=== PATIENT | female | born 1940 | race Caucasian/White ===

== ENCOUNTER 2018-06-16 10:17 | Day surgery (SDC) | payer MEDICARE, OTHER, SELFPAY ==
--- NOTE | 2018-06-16 | PATH_ITS ---
[facility] Accession Number: [id number] . 01 Material submitted: . PART A: GASTRIC BIOPSY PART B: BIOPSY AT 65CM PART C: BIOPSY AT 45CM PART D: BIOPSY AT 25CM X3 . 02 Diagnosis: A. Gastric Biopsy: Portions of gastric body-type and antral mucosa with very mild chronic gastritis. Negative for H. pylori organisms by immunohistochemistry studies. Negative for intestinal metaplasia, dysplasia, and malignancy. . B. Biopsy at 65 cm: Portions of tubular adenoma x3; negative for high-grade dysplasia. . C. Biopsy at 45 cm: Superficial portion of colorectal mucosa x1 with no significant histomorphologic abnormality. Additional levels through the block are noncontributory. . D. Biopsy at 25 cm: Portions of hyperplastic polyp x 5. Superficial portions of colorectal mucosa x6 with no significant histomorphologic abnormality. Additional levels through the block are noncontributory. [facility]/06/18/2018 . 02 Electronically signed: . Anastasia Dupont MD, Pathologist NPI- [id number] . 01 Gross description: . Part A: GASTRIC BIOPSY: Received in formalin are 2 fragment(s) of arreguin, soft tissue measuring 0.4 x 0.3 x 0.2 cm to 0.3 x 0.3 x 0.2 cm submitted entirely in 1 cassette(s) Part B: BIOPSY AT 65CM: Received in formalin are 3 fragment(s) of arreguin, soft tissue measuring 0.4 x 0.3 x 0.2 cm to 0.3 x 0.2 x 0.1 cm submitted entirely in 1 cassette(s) Part C: BIOPSY AT 45CM: Received in formalin is 1 fragment(s) of arreguin, soft tissue measuring 0.5 x 0.4 x 0.3 cm submitted entirely in 1 cassette(s) Part D: BIOPSY AT 25CM X3: Received in formalin are multiple fragment(s) of arreguin, soft tissue measuring 1.4 x 0.5 x 0.3 cm in aggregate submitted entirely in 1 cassette(s) /CKI /CKI . 02 Microscopic: . An immunohistochemical stain was performed to evaluate for Helicobacter organisms on block A and is negative. The control stain showed appropriate reactivity. . * This test was developed and its performance characteristics determined by [facility]. It has not been cleared or approved by the U.S. Food and Drug Administration. The FDA has determined that such clearance or approval is not necessary. This test is used for clinical purposes. It should not be regarded as investigational or for research. . 02 Pathologist provided ICD-10: K63.5 . 02 CPT . 519790, 406114, 773152, 180097, [id number] Performed at: 01 [facility] [address] [place] [address], [place], [place] [id number] MD Luiz Barron MD Phone: [phone] Performed at: 02 [facility] [address] [place], [place] [id number] MD Danae Calderon MD Phone: [phone]
[2018-06-16 11:18] VITALS: BP 117/67; PULSE 79; RESP 15; TEMP 36.2; O2SAT 97; BMI 25.4
[2018-06-16] MEDS: SODIUM CHLORIDE 0.9% 1,000 ML 200 ML IV (11:36)
--- NOTE | 2018-06-16 12:44 | PM.PREOP ---
Pre-operative Note Interval Note History & Physical reviewed/Exam performed by Physician: Yes Changes to H&P: No ASA Class (for procedural sedation): II
[2018-06-16] MEDS: LIDOCAINE 4% SOLN 50 ML 20 ML TOP (12:53)
[2018-06-16] MEDS: TETRACAINE/BENZOCAINE/BUTAMBEN (CETACAINE) BOTTLE 1 SPRAY TOP (12:54)
[2018-06-16] MEDS: fentaNYL 250 MCG/5 ML INJ IV (12:55)
[2018-06-16] MEDS: MIDAZOLAM 5 MG/5 ML VIAL IV (12:55)
--- NOTE | 2018-06-16 13:40 | PM.OP.ENDO ---
Operative Date/Time/Diagnoses Date of procedure: 06/16/18 Time of procedure: 13:40 Pre-op diagnosis: Anemia Post-op diagnosis: same (Gastric ulcers.(likely source of anemia). Multiple small colonic polyps (not likely souce of anemia)) Procedure & Clinicians Study performed: EGD with cold biopsy colonoscopy with cold biopsy Same procedure as scheduled: Yes Indications: Determine cause of anemia Surgeon: Garry Cardozo Procedure Notes SCOAP/Timeout: Performed Procedure in detail: The patient had topical anesthetic applied to oropharynx. She was placed in left lateral decubitus position and underwent IV sedation directed by the surgeon consisting of fentanyl and Versed. A bite block was inserted and the scope was advanced through it into the esophagus. The esophagus was unremarkable. GE junction was noted at 40 cm from the incisors. The stomach insufflated well. There were superficial ulcer lesions seen in the body, antrum. the incisura was normal. The pyloric channel was patent. The duodenum was remarkable for small AVMs in the 3rd part of the duodenum. These did not appear to have bled. The scope was brought back into the stomach and retroflexed. The proximal stomach was remarkable for some superficial well circumscribed there were 2 small such [address]. The scope was straightened and biopsies were taken of the ulcers within the body and antrum.. The scope was straightened and brought out through the esophagus again. No lesions were seen. The scope was removed and the patient tolerated the procedure well. The patient was repositioned and given additional sedation. Digital exam was unremarkable. Scope was inserted advanced through the rectum into the sigmoid descending transverse and ascending colon. There was quite a bit of tortuosity in the colon. I reached the cecum identified by the ileocecal valve and the appendiceal opening. The scope was gradually brought out. At 65 cm there was a small flat lesion which was biopsied and appeared to be completely removed. At 45 cm there were 2 additional polyps treated in the same fashion. At at 25 cm there were 2 polyps 1 adjacent to the other which were biopsied and completely removed. The scope was brought into the rectum and retroflexed. No lesions were seen. The scope was removed and patient tolerated the procedure well. Scope withdrawal time: 17 min Sedation minutes: 40 Findings: diverticulosis (Sigmoid), gastric ulcer (Multiple superficial) and polyp (Multiple colonic) Recommendations: Colonscopy in 5 years and Start medication(s) (Proton pump inhibitor) Plan for aftercare: Follow-up in the office Follow up: months (Two) Disposition: PACU
[2018-06-16 13:49] VITALS: BP 102/49; PULSE 95; RESP 15; TEMP 36.6; O2SAT 98
[2018-06-16 14:00] VITALS: BP 92/57; PULSE 83; RESP 16; O2SAT 97
[2018-06-16 14:20] VITALS: BP 111/63; PULSE 83; RESP 16; TEMP 36.7; O2SAT 98
== END 2018-06-16 15:56 | disposition home or self-care (01) ==
PROVIDERS: PCP Internal Medicine; Visit Provider Specialist
PROC: 0DJ08ZZ Inspection of Upper Intestinal Tract, Via Natural or Artificial Opening Endoscopic (ICD-10-PCS; CPT 43235; principal; 2018-06-16 11:45)
PROC: 0DJD8ZZ Inspection of Lower Intestinal Tract, Via Natural or Artificial Opening Endoscopic (ICD-10-PCS; CPT 45378; 2018-06-16 11:45)
DX: D64.9 Anemia, unspecified (principal); K25.9 Gastric ulcer, unspecified as acute or chronic, without hemorrhage or perforation; Z87.891 Personal history of nicotine dependence; K57.30 Diverticulosis of large intestine without perforation or abscess without bleeding; K63.5 Polyp of colon
CPT/HCPCS: 45380; 43239; 88305; 88342; 99152; 99153; J2250; J3010

== ENCOUNTER 2019-02-16 06:29 | Day surgery (SDC) | payer MEDICARE, OTHER, SELFPAY ==
[2019-02-16 07:27] VITALS: BP 114/71; PULSE 85; RESP 16; TEMP 36.2; O2SAT 96; BMI 26.1
[2019-02-16] MEDS: SODIUM CHLORIDE 0.9% 1,000 ML 200 ML IV (07:41)
--- NOTE | 2019-02-16 08:36 | PM.HP.1 ---
History of Present Illness History of Present Illness Date Patient Seen: 02/16/19 Time Patient Seen: 08:00 Chief complaint: [id number] Narrative: The patient is a woman here for a repeat EGD to confirm healing of gastric ulcers. She has been taking pantoprazole 40 mg daily. She has a history of anemia. Colonoscopy did not reveal anything source of slow blood loss. Patient History Surgical History S/P femoral-femoral bypass surgery (Resolved) Status post bilateral hip replacements (Resolved) Social History household members: none Smoking Status: Former smoker Tobacco: How many years used: 30 Family & Social History Social History: household members none Tobacco & Substance use: Smoking Status Former smoker Meds Home Medications and Allergies Home Medications Medication Instructions Recorded Confirmed Type clopidogrel 75 mg tablet 75 mg PO DAILY 05/27/18 02/16/19 History triamcinolone acetonide 0.025 % 1 applictn TOP BID 05/27/18 02/16/19 History topical cream pantoprazole 40 mg PO DAILY #30 tab 06/16/18 02/16/19 Rx Allergies Allergy/AdvReac Type Severity Reaction Status Date / Time No Known Drug Allergies Allergy Verified 10/28/18 14:05 Exam Vital Signs (past 8 hours): - 02/16/19 07:27 Temperature 97.1 F L Pulse Rate 85 Respiratory Rate 16 Blood Pressure 114/71 Pulse Oximetry 96 Oxygen Delivery Method Room Air Narrative Exam Narrative: Pleasant cooperative patient no apparent distress. Lungs are clear to auscultation. No rales or rhonchi. Heart regular rate and rhythm no murmur gallop. Abdomen is soft nontender without mass. No obvious hernias. Patient is alert and oriented x3. Assessment & Plan Assessment & Plan narrative: Patient with a history gastric ulcers here for an EGD to confirm healing. She was asymptomatic at the time of diagnosis. I have discussed the procedure with her including risks of bleeding and perforation. She appears to undedrstand and wishes to proceed.
--- NOTE | 2019-02-16 08:40 | PM.PREOP ---
Pre-operative Note Interval Note History & Physical reviewed/Exam performed by Physician: Yes Changes to H&P: No ASA Class (for procedural sedation): II
[2019-02-16] MEDS: MIDAZOLAM 5 MG/5 ML VIAL IV (08:47)
[2019-02-16] MEDS: fentaNYL 250 MCG/5 ML INJ IV (08:48)
--- NOTE | 2019-02-16 08:49 | PM.OP.ENDO ---
Operative Date/Time/Diagnoses Date of procedure: 02/16/19 Time of procedure: 08:50 Pre-op diagnosis: History of gastric ulcers and anemia Post-op diagnosis: same (Ulcers appear to have healed) Procedure & Clinicians Study performed: EGD Same procedure as scheduled: Yes Indications: Confirm ulcer healing. Patient was asymptomatic at the time of diagnosis. Surgeon: Garry Cardozo Procedure Notes SCOAP/Timeout: Perform Procedure in detail: The patient had topical anesthetic applied to oropharynx. She was placed in left lateral decubitus position and underwent IV sedation directed by the surgeon consisting of fentanyl and Versed. A bite block was inserted and the scope was advanced through it into the esophagus. The esophagus was unremarkable. GE junction was noted at 36 cm from the incisors. The stomach insufflated well. There were no lesions seen in the body, antrum or at the incisura. The pyloric channel was patent. The duodenum was unremarkable to the 4th part. The scope was brought back into the stomach and retroflexed. The proximal stomach normal in appearance. The scope was straightened and brought out through the esophagus again. No lesions were seen. The scope was removed and the patient tolerated the procedure well. Scope withdrawal time: Not applicable Sedation minutes: 8 Findings: other findings (Normal exam) Specimen(s): none sent Complications: none Post-procedure Plan for aftercare: Can probably sees proton pump inhibitor if given for ulcer disease. If given for other problems like reflux may need to continue. Follow up: as needed Disposition: PACU
[2019-02-16] MEDS: LIDOCAINE 4% SOLN 50 ML 20 ML TOP (08:50)
[2019-02-16 08:53] VITALS: BP 112/65; PULSE 89; RESP 12; TEMP 36.3; O2SAT 96
[2019-02-16 08:58] VITALS: BP 104/58; PULSE 91; RESP 17; O2SAT 95
[2019-02-16 09:03] VITALS: BP 114/56; PULSE 79; RESP 15; O2SAT 92
[2019-02-16 09:08] VITALS: BP 114/61; PULSE 83; RESP 14; TEMP 36.4; O2SAT 97
[2019-02-16 09:15] VITALS: BP 104/87; PULSE 79; RESP 16; TEMP 36.5; O2SAT 96
== END 2019-02-16 09:27 | disposition home or self-care (01) ==
PROVIDERS: PCP Internal Medicine; Visit Provider Specialist
PROC: 0DJ08ZZ Inspection of Upper Intestinal Tract, Via Natural or Artificial Opening Endoscopic (ICD-10-PCS; CPT 43235; principal; 2019-02-16 07:45)
DX: Z87.19 Personal history of other diseases of the digestive system (principal); D64.9 Anemia, unspecified
CPT/HCPCS: 43235; 99152; J2250; J3010

== ENCOUNTER → 2019-10-20 12:29 | Outpatient (CLI) | payer MEDICARE, OTHER, SELFPAY ==
--- NOTE | 2019-10-20 | DI.MRI.S_ITS ---
PROCEDURE: MR LUMBAR SPINE WO CON INDICATIONS: Other specified disorders of central nervous syste TECHNIQUE: Noncontrast sagittal T1 spin echo and T2 fast echo, coronal T2, sagittal STIR, axial T1 and T2 fast spin echo through the lumbar spine. COMPARISON: None. FINDINGS: Image quality: Excellent. Alignment and Curvature: No plain films are available for comparison, for numbering purposes. Thus, for the purposes of this examination, 5 lumbar type vertebral bodies will be presumed, as denoted on the montage panel. This should be confirmed and correlated with plain films, prior to any lumbar spinal intervention. There is moderate leftward curvature of the mid/upper lumbar spine. There is loss of normal lumbar lordosis. There is mild grade 1 retrolisthesis of T12 on L1, L1 on L2, L2 on L3, L3 on L4, L4 on L5, and L5 on S1. Bone Marrow: Marrow is of normal overall signal. No acute vertebral body compression fractures. There is moderate reactive signal within the endplates adjacent to the L2-L3, L4-L5, and L5-S1 intervertebral discs. Mild reactive signal within the endplates adjacent to the T10-T11, T11-T12, T12-L1, L1-L2, and L3-L4 intervertebral discs. Spinal Cord: Conus medullaris terminates at the lower L2 level. Visualized cord demonstrates normal signal and size. Paraspinous Soft Tissues: No paravertebral masses. L1-L2: Moderate disc height loss and desiccation. Mild diffuse disc bulge. Mild facet and ligamentum plate hypertrophy. Mild canal stenosis. Mild right foraminal stenosis. No left foraminal stenosis. L2-L3: Severe disc height loss and desiccation. Mild diffuse disc bulge/osteophyte with superimposed right posterolateral and far lateral protrusion/osteophyte. Mild facet and ligament flavum hypertrophy. Mild canal stenosis. Moderate right and mild left foraminal stenosis. L3-L4: Moderate disc height loss and desiccation. Mild diffuse disc bulge. Mild facet and ligamentum flavum hypertrophy. Mild canal stenosis. Mild left and moderate right foraminal stenosis. L4-L5: Moderate disc height loss and desiccation. Moderate diffuse disc bulge with superimposed left far lateral protrusion/osteophyte. Moderate facet hypertrophy. Mild ligamentum flavum hypertrophy. Mild canal stenosis. Severe left and mild right foraminal stenosis. Left L4 nerve root compression. L5-S1: Severe disc height loss and desiccation. Moderate diffuse disc bulge/osteophyte. Mild facet and ligamentum hypertrophy. Mild canal stenosis. Severe left and moderate right foraminal stenosis. Left L5 nerve root compression. IMPRESSION: 1. Multilevel degenerative disc and facet disease, as well as ligamentum flavum hypertrophy and epidural lipomatosis. 2. Mild multilevel canal stenoses. 3. Multilevel foraminal stenoses, worst at L4-L5 and L5-S1 on the left, where there is associated intraforaminal nerve root compression. Recommend correlation with clinical symptoms to ascertain relevance of this finding. 4. 5 lumbar type vertebral bodies were presumed for the current report. Plain films of the lumbar spine are recommended for confirmation, prior to any lumbar spinal intervention. Dictated by: Juan Arredondo M.D. on 10/20/2019 at 13:52 Approved by: Juan Arredondo M.D. on 10/20/2019 at 13:56
== END ==
PROVIDERS: PCP Internal Medicine; Referring Provider Internal Medicine; Visit Provider Internal Medicine
DX: G96.8 Other specified disorders of central nervous system (principal); M51.36 Other intervertebral disc degeneration, lumbar region; M51.37 Other intervertebral disc degeneration, lumbosacral region; M48.061 Spinal stenosis, lumbar region without neurogenic claudication; M48.07 Spinal stenosis, lumbosacral region; E88.2 Lipomatosis, not elsewhere classified
CPT/HCPCS: 72148

== ENCOUNTER 2020-09-14 14:08 | Inpatient (IN) | payer MEDICARE, OTHER, SELFPAY ==
[2020-09-14] VITALS (20 sets, daily range): BP systolic 126–138; BP diastolic 43–60; PULSE 69–104; RESP 15–20; TEMP 36.2–37.1; O2SAT 96–100; BMI 20.7
--- NOTE | 2020-09-14 14:26 | ED_ITS ---
HPI - Weakness General Chief complaint: GI Bleed Stated complaint: states, dont have any red blood cells Time Seen by Provider: 09/14/20 14:11 Source: patient and family Mode of arrival: Wheelchair Limitations: no limitations History of Present Illness HPI Narrative: 79-year-old female former smoker with history of peripheral vascular disease presents with her sister and a chief complaint of significant weakness, fatigue and shortness of breath over the past few weeks. She was seen by her primary care provider as an outpatient and found to have significant anemia. She denies any vomiting, blood in her stool or her urine. She does take Plavix due to a vascular surgery she had years ago. Otherwise she denies any new medications or dietary change. She becomes dizzy and lightheaded upon standing and fatigued with minimal exertion. She denies any extensive alcohol history and has never had bleeding ulcers or history of GI bleed. MD Complaint: generalized weakness Onset (ago): week(s) Duration: constant Location: generalized Exacerbating factors: exertion Related Data Home Medications Medication Instructions Recorded Confirmed clopidogrel 75 mg tablet 75 mg PO DAILY 05/27/18 02/16/19 gabapentin 100 mg PO DAILY 09/14/20 09/14/20 sertraline 50 mg PO BEDTIME 09/14/20 09/14/20 Allergies Allergy/AdvReac Type Severity Reaction Status Date / Time No Known Drug Allergies Allergy Verified 09/14/20 14:22 Review of Systems Constitutional Constitutional: Denies chills, Denies fatigue, Denies fever(s), Denies frequent falls, Denies lethargy and Reports weakness Eyes Eyes: Denies change in vision, Denies eye discharge, Denies irritation and Denies loss of vision ENT Ears, Nose, Mouth, and Throat: Denies change in voice, Denies dizziness, Denies neck pain, Denies sore throat and Denies throat swelling Cardiovascular Cardiovascular: Denies chest pain, Denies irregular heart rhythm, Denies lightheadedness, Denies palpitations, Reports dyspnea, Denies dyspnea on exertion and Denies orthopnea Respiratory Respiratory: Denies cough, Reports dyspnea, Denies dyspnea on exertion and D enies wheezing Gastrointestinal Gastrointestinal: Denies abdominal pain, Denies change in bowel habits, Denies diarrhea, Denies nausea and Denies vomiting Musculoskeletal Musculoskeletal: Denies neck pain and Denies numbness Integumentary/Breasts Skin/Breast: Denies pruritus, Denies erythema, Denies rash and Denies wounds Neurologic Neurologic: Denies behavioral changes, Denies confusion, Denies dizziness, Denies frequent falls, Denies loss of vision, Denies numbness and Reports weakness Psychiatric Psychiatric: Denies anxiety, Denies behavioral changes, Denies confusion, Denies depression, Denies homicidal ideation and Denies suicidal ideation Endocrine Endocrine: Denies fatigue, Denies flushing and Denies palpitations Hematologic/Lymphatic Hematologic/Lymphatic: Denies easy bruising Allergic/Immunologic Allergic/Immunologic: Denies urticaria, Denies throat swelling and Denies wheezing Patient History Surgical History S/P femoral-femoral bypass surgery Status post bilateral hip replacements Social History household members: none Smoking Status: Former smoker Tobacco: How many years used: 30 Smoking Status: Former smoker Exam Narrative Exam Narrative: GENERAL: [79] year old patient appears stated age. Well-nou rished, well-developed patient, in mild distress. Resting comfortably, obviously pale HEAD: Atraumatic. Normocephalic. EYES: Pale conjunctiva Pupils equal round and reactive. Extraocular motions in tact. No scleral icterus. No injection or drainage. ENT: Nose without bleeding, purulent drainage. Throat without erythema, tonsillar hypertrophy or exudate. Airway patent. NECK: Trachea midline. Non tender CARDIOVASCULAR: Regular rate and rhythm without murmurs, gallops, or rubs. RESPIRATORY: Clear to auscultation. Breath sounds equal bilaterally. No wheezes, rales, or rhonchi. GASTROINTESTINAL: Abdomen soft, non-tender, nondistended. RECTAL: EXTREMITIES: No edema or joint tenderness. BACK: Nontender without deformity or crepitance. No flank tenderness. NEURO: AOx3. SKIN: No rash or erythema of visible areas Initial Vital Signs Initial Vital Signs: Vital Signs Temperature 98.2 F 09/14/20 14:18 Pulse Rate 104 H 09/14/20 14:18 Respiratory Rate 15 09/14/20 14:18 Blood Pressure 135/53 L 09/14/20 14:18 Pulse Oximetry 100 09/14/20 14:18 Course Orders Ordered: ED Orders 09/14/20 14:17 Complete Blood Count AUTO DIFF Stat Comprehensive Metabolic Panel Stat Packed Cells Stat Partial Thromboplastin Time Stat Prothrombin Time INR Stat Type and Screen Stat 09/14/20 14:37 COVID19 - ADMIT (COMPUTER FIELD TECHNICIAN swab/PCR) Stat Pantoprazole Sodium (Pantoprazole 40 Mg Vial) 40 mg IV BID [facility] Consultations Consultation #1: hospitalist happy to accept Consultation #2: Gen surgery contacted, will be happy to be involved with consultation, will be in contact with hospitalist Vital Signs Vital signs: Vital Signs - 8 hr 09/14/20 14:18 09/14/20 14:19 09/14/20 14:30 Temperature 98.2 F Pulse Rate 104 H 92 H 83 Respiratory Rate 15 17 18 Blood Pressure 135/53 L 126/57 L Pulse Oximetry 100 99 99 09/14/20 15:00 09/14/20 15:30 09/14/20 15:31 Temperature Pulse Rate 89 91 H 90 Respiratory Rate 18 20 17 Blood Pressure 135/60 127/55 L Pulse Oximetry 98 09/14/20 15:40 Temperature 98 F Pulse Rate 83 Respiratory Rate 16 Blood Pressure 127/55 L Pulse Oximetry MDM - Weakness Lab Data Result diagrams: 09/14/20 14:17 09/14/20 14:17 Labs: Lab Results 09/14/20 09/14/20 09/14/20 Range/Units 14:17 14:17 14:17 WBC 2.9 L (4.5-11.0) X10^3/uL RBC 2.33 L (4.0-5.2) X10^6/uL Hgb 4.5 L* (12.0-16.0) g/dL Hct 15.5 L* (36-46) % MCV 66.6 L (80-100) fL MCH 19.3 L (26-34) PG MCHC 29.0 L (30-36) % RDW 21.1 H (11.6-14.8) % Plt Count 184 (150-400) X10^3/uL Neut % (Auto) 74.6 (50-75) % Lymph % (Auto) 17.0 L (25-40) % [place] % (Auto) 6.9 (3-14) % Eos % (Auto) 1.0 L (2-4) % Baso % (Auto) 0.5 (0-2) % Neut # (Auto) 2100 (2693-5004) /uL Lymph # (Auto) 500 L (4194-4711) /uL [place] # (Auto) 200 (0-900) /uL Eos # (Auto) 0 (0-450) /uL Baso # (Auto) 0 (0-100) /uL RBC Morphology See below Hypochromasia 1+ H Poikilocytosis 2+ H Anisocytosis 2+ H Microcytosis 2+ H Tear Drop Cells 1+ H Ovalocytes 1+ H PT 13.2 H (10.1-12.7) SECONDS INR 1.2 (0.9-1.3) APTT (26.4-36.2) SECONDS Sodium 139 (137-145) mmol/L Potassium 3.5 (3.4-5.1) mmol/L Chloride 106 (98-107) mmol/L Carbon Dioxide 21 L (22-32) mmol/L BUN 12 (7-17) mg/dL Creatinine 0.62 (0.52-1.04) mg/dL Estimated GFR > 60.0 (>60) mL/min BUN/Creatinine Ratio 19.4 (6-22) Glucose 100 (80-110) mg/dL Calcium 8.7 (8.4-10.2) mg/dL Total Bilirubin 0.4 (0.2-1.3) mg/dL AST 23 (14-36) IU/L ALT 12 (<35) IU/L Alkaline Phosphatase 72 (38-126) U/L Total Protein 6.8 (6.3-8.2) g/dL Albumin 4.0 (3.5-5.0) g/dL Globulin 2.8 (1.7-4.1) g/dL Albumin/Globulin Ratio 1.4 (1.0-2.8) SARS-CoV-2 (PCR) (Negative) Blood Type Antibody Screen Crossmatch 09/14/20 09/14/20 09/14/20 Range/Units 14:17 14:17 14:37 WBC (4.5-11.0) X10^3/uL RBC (4.0-5.2) X10^6/uL Hgb (12.0-16.0) g/dL Hct (36-46) % MCV (80-100) fL MCH (26-34) PG MCHC (30-36) % RDW (11.6-14.8) % Plt Count (150-400) X10^3/uL Neut % (Auto) (50-75) % Lymph % (Auto) (25-40) % [place] % (Auto) (3-14) % Eos % (Auto) (2-4) % Baso % (Auto) (0-2) % Neut # (Auto) (7120-4776) /uL Lymph # (Auto) (4412-0010) /uL [place] # (Auto) (0-900) /uL Eos # (Auto) (0-450) /uL Baso # (Auto) (0-100) /uL RBC Morphology Hypochromasia Poikilocytosis Anisocytosis Microcytosis Tear Drop Cells Ovalocytes PT (10.1-12.7) SECONDS INR (0.9-1.3) APTT 36 (26.4-36.2) SECONDS Sodium (137-145) mmol/L Potassium (3.4-5.1) mmol/L Chloride (98-107) mmol/L Carbon Dioxide (22-32) mmol/L BUN (7-17) mg/dL Creatinine (0.52-1.04) mg/dL Estimated GFR (>60) mL/min BUN/Creatinine Ratio (6-22) Glucose (80-110) mg/dL Calcium (8.4-10.2) mg/dL Total Bilirubin (0.2-1.3) mg/dL AST (14-36) IU/L ALT (<35) IU/L Alkaline Phosphatase (38-126) U/L Total Protein (6.3-8.2) g/dL Albumin (3.5-5.0) g/dL Globulin (1.7-4.1) g/dL Albumin/Globulin Ratio (1.0-2.8) SARS-CoV-2 (PCR) Negative (Negative) Blood Type O Positive Antibody Screen Negative Crossmatch See Detail Discharge Plan Departure Patient Disposition: Admitted As Inpatient Clinical Impression: Anemia Qualifiers: Anemia type: iron deficiency Iron deficiency anemia type: unspecified iron deficiency Qualified Code(s): D50.9 - Iron deficiency anemia, unspecified Admit Date/Time: 09/14/20 15:40 Admit Provider: José Manuel Conn
[2020-09-14 14:40] LABS: INR 1.2 (0.9-1.3); Prothrombin Time 13.2 SECONDS (10.1-12.7)
[2020-09-14 14:44] LABS: Add Manual Diff / Slide Review NO; Basophils Absolute Auto 0 /uL (0-100); Basophils Percent Auto 0.5 % (0-2); Eosinophils Absolute Auto 0 /uL (0-450); Lymphocytes Absolute Auto 500 /uL (1100-4500); Mean Corpuscular Hemoglobin 19.3 PG (26-34); Mean Corpuscular Volume 66.6 fL (80-100); Monocytes Absolute Auto 200 /uL (0-900); Monocytes Percent Auto 6.9 % (3-14); Neutrophils Absolute Auto 2100 /uL (1500-7000); Neutrophils Percent Auto 74.6 % (50-75); Platelet Count 184 X10^3/uL (150-400); Red Blood Cell Count 2.33 X10^6/uL (4.0-5.2); Red Cell Distribution Width 21.1 % (11.6-14.8); White Blood Cell Count 2.9 X10^3/uL (4.5-11.0)
[2020-09-14 14:48] LABS: Alanine Aminotransferase 12 IU/L (<35); Albumin Globulin Ratio 1.4 (1.0-2.8); Alkaline Phosphatase 72 U/L (38-126); Aspartate Aminotransferase 23 IU/L (14-36); BUN Creatinine Ratio 19.4 (6-22); Bilirubin Total 0.4 mg/dL (0.2-1.3); Blood Urea Nitrogen 12 mg/dL (7-17); Calcium 8.7 mg/dL (8.4-10.2); Carbon Dioxide 21 mmol/L (22-32); Chloride 106 mmol/L (98-107); Estimated Glomerular Filt Rate > 60.0 mL/min (>60); Globulin 2.8 g/dL (1.7-4.1); Glucose 100 mg/dL (80-110); HEMOLYSIS < 15 (0-50); PTT Partial Thromboplastin Tim 36 SECONDS (26.4-36.2); Potassium 3.5 mmol/L (3.4-5.1); Sodium 139 mmol/L (137-145); Total Protein 6.8 g/dL (6.3-8.2)
[2020-09-14 14:50] LABS: Hemoglobin 4.5 g/dL (12.0-16.0)
[2020-09-14 14:51] LABS: Hematocrit 15.5 % (36-46)
[2020-09-14 15:18] LABS: Anisocytosis 2+; Hypochromasia 1+; Microcytosis 2+
[2020-09-14 15:19] LABS: Ovalocytes 1+; Poikilocytosis 2+; Tear Drop Cells 1+
[2020-09-14 15:44] LABS: COVID19 - ADMIT (NP swab/PCR) Negative (Negative)
[2020-09-14 16:13] LABS: Reticulocyte Count, Percent 3.3 % (1.06-2.63)
[2020-09-14 16:18] LABS: Lactate Dehydrogenase 418 U/L (313-618)
[2020-09-14 16:18] LABS: HEMOLYSIS < 15 (0-50); Iron 12 ug/dL (37-170)
[2020-09-14 16:30] LABS: Percent Iron Saturation 3 % (15-50); Total Iron Binding Capacity 471 ug/dL (265-497); Transferrin 370 mg/dL (206-381)
[2020-09-14] MEDS: ACETAMINOPHEN 325 MG TABLET 650 MG PO (17:07)
--- NOTE | 2020-09-14 17:22 | P.HP_ITS ---
History of Present Illness History of Present Illness Date Patient Seen: 09/14/20 Time Patient Seen: 15:23 Chief complaint: states, dont have any red blood cells Narrative: Ms. Sherman is a 79W with PMH of peripheral vascular disease s/p fem- fem bypass who comes in with anemia. She notes that for the last two weeks she has been feeling weaker. She is dizzy when she gets up. She is short of breath with exertion. She has noticed the weakness for slightly longer than that, but can't quantify for how long. She has had anemia before and has seen Dr. Cardozo who performed EGD and colonoscopy in 2019. She had gastric ulcers found at that time and was started on PPI and had follow up scope months later that showed resolution of her ulcers. She has since stopped her PPI. She denies alcohol use, or use of nsaids. She is on plavix. She has not noticed any bleeding, no hematemesis, hematochezia or melena. She presented to her PCP for her above symptoms who checked labs and noted her anemia and directed her to the ED. In the ED, workup was done vitals were noted for normal blood pressure, mild tachycardia in the 90s-100s. Labs notable for WBC of 2.9, hgb of 4.5, MCV of 66.6, platelets of 184. INR 1.2. Creatinine 0.62. Iron 12, with iron sat 3%. LFTs ok. LDH ok. She was ordered for transfusion of PRBC and admitted for further treatment. Patient History Surgical History S/P femoral-femoral bypass surgery Status post bilateral hip replacements Family & Social History Social History: household members none Prior Living Arrangements Mobile home Safety & Behavioral: Feels Safe in Current Yes Environment Been Physically Hurt or No Threatened By a Person Tobacco & Substance use: Smoking Status Former smoker alcohol intake current alcohol intake frequency holiday/special occasion Substance Use Type does not use Meds Home Medications and Allergies Home Medications Medication Instructions Recorded Confirmed Type clopidogrel 75 mg tablet 75 mg PO DAILY 05/27/18 09/14/20 History gabapentin 100 mg PO DAILY 09/14/20 09/14/20 History sertraline 50 mg PO BEDTIME 09/14/20 09/14/20 History Allergies Allergy/AdvReac Type Severity Reaction Status Date / Time No Known Drug Allergies Allergy Verified 09/14/20 14:22 Review of Systems Review of Systems Narrative: 14 systems reviewed and negative aside from HPI Exam Vital Signs (past 8 hours): - 09/14/20 14:18 09/14/20 14:19 09/14/20 14:30 Temperature 98.2 F Pulse Rate 104 H 92 H 83 Respiratory Rate 15 17 18 Blood Pressure 135/53 L 126/57 L Pulse Oximetry 100 99 99 09/14/20 15:00 09/14/20 15:30 09/14/20 15:31 Temperature Pulse Rate 89 91 H 90 Respiratory Rate 18 20 17 Blood Pressure 135/60 127/55 L Pulse Oximetry 98 09/14/20 15:40 09/14/20 16:00 09/14/20 16:05 Temperature 98 F 98.1 F Pulse Rate 83 91 H 91 H Respiratory Rate 16 19 17 Blood Pressure 127/55 L 132/57 L 132/57 L Pulse Oximetry 97 09/14/20 16:15 Temperature 98.8 F Pulse Rate 93 H Respiratory Rate 18 Blood Pressure 134/51 L Pulse Oximetry 97 Oxygen Delivery Method Room Air Oxygen Flow Rate 0 Narrative Exam Narrative: GEN: fatigued, elderly, chronically ill appearing, no acute distress HEENT: PERRL, pale conjunctiva, dry mucous membranes CV: tachycardic, regular, 2/6 systolic ejection murmur PULM: clear bilaterally, no wheezes, rhonchi or rales ABD: soft, nontender, nondistended, no organomegaly, normal bowel sounds EXT: warm and well perfused with no edema NEURO: AAOx3, moving all extremities SKIN: no rashes PSYCH: pleasant mood, cooperative Objective Labs Result Diagrams: 09/14/20 14:17 09/14/20 14:17 Labs: Laboratory Results - last 24 hr 09/14/20 09/14/20 09/14/20 14:17 14:17 14:17 WBC 2.9 L RBC 2.33 L Hgb 4.5 L* Hct 15.5 L* MCV 66.6 L MCH 19.3 L MCHC 29.0 L RDW 21.1 H Plt Count 184 Neut % (Auto) 74.6 Lymph % (Auto) 17.0 L [place] % (Auto) 6.9 Eos % (Auto) 1.0 L Baso % (Auto) 0.5 Neut # (Auto) 2100 Lymph # (Auto) 500 L [place] # (Auto) 200 Eos # (Auto) 0 Baso # (Auto) 0 RBC Morphology See below Hypochromasia 1+ H Poikilocytosis 2+ H Anisocytosis 2+ H Microcytosis 2+ H Tear Drop Cells 1+ H Ovalocytes 1+ H Percent Retic PT 13.2 H INR 1.2 APTT Sodium 139 Potassium 3.5 Chloride 106 Carbon Dioxide 21 L BUN 12 Creatinine 0.62 Estimated GFR > 60.0 BUN/Creatinine Ratio 19.4 Glucose 100 Calcium 8.7 Iron TIBC % Saturation Transferrin Total Bilirubin 0.4 AST 23 ALT 12 Alkaline Phosphatase 72 Lactate Dehydrogenase Total Protein 6.8 Albumin 4.0 Globulin 2.8 Albumin/Globulin Ratio 1.4 SARS-CoV-2 (PCR) Blood Type Antibody Screen Crossmatch 09/14/20 09/14/20 09/14/20 14:17 14:17 14:26 WBC RBC Hgb Hct MCV MCH MCHC RDW Plt Count Neut % (Auto) Lymph % (Auto) [place] % (Auto) Eos % (Auto) Baso % (Auto) Neut # (Auto) Lymph # (Auto) [place] # (Auto) Eos # (Auto) Baso # (Auto) RBC Morphology Hypochromasia Poikilocytosis Anisocytosis Microcytosis Tear Drop Cells Ovalocytes Percent Retic PT INR APTT 36 Sodium Potassium Chloride Carbon Dioxide BUN Creatinine Estimated GFR BUN/Creatinine Ratio Glucose Calcium Iron TIBC % Saturation Transferrin Total Bilirubin AST ALT Alkaline Phosphatase Lactate Dehydrogenase 418 Total Protein Albumin Globulin Albumin/Globulin Ratio SARS-CoV-2 (PCR) Blood Type O Positive Antibody Screen Negative Crossmatch See Detail 09/14/20 09/14/20 09/14/20 14:35 14:35 14:37 WBC RBC Hgb Hct MCV MCH MCHC RDW Plt Count Neut % (Auto) Lymph % (Auto) [place] % (Auto) Eos % (Auto) Baso % (Auto) Neut # (Auto) Lymph # (Auto) [place] # (Auto) Eos # (Auto) Baso # (Auto) RBC Morphology Hypochromasia Poikilocytosis Anisocytosis Microcytosis Tear Drop Cells Ovalocytes Percent Retic 3.3 H PT INR APTT Sodium Potassium Chloride Carbon Dioxide BUN Creatinine Estimated GFR BUN/Creatinine Ratio Glucose Calcium Iron 12 L TIBC 471 % Saturation 3 L Transferrin 370 Total Bilirubin AST ALT Alkaline Phosphatase Lactate Dehydrogenase Total Protein Albumin Globulin Albumin/Globulin Ratio SARS-CoV-2 (PCR) Negative Blood Type Antibody Screen Crossmatch Assessment & Plan Assessment & Plan narrative: 1. Anemia -initial hgb of 4.7 -guaiac positive stools slightly in ED -no overt bleeding -previously had gastric ulcers noted on EGD -notable iron deficiency, consistent with possible slow GI losses -will plan to transfuse 3U PRBC -consult surgery -NPO for possible scope 09/15 -other considerations for anemia are bone marrow failure are considered as patient has leukopenia, ldh is normal, platelets are normal, retic count pending -may need hematology referral as outpatient -given ejection murmur, will check haptoglobin to make sure no evidence of red cell destruction 2. Leukopenia -unclear etiology -will trend daily -increases suspicion for possible bone marrow process 3. Systolic Ejection murmur -may be contributing to patient's shortness of breath -ECHO to eval for valvular dysfunction 4. Peripheral vascular disease -hold plavix for now given anemia IVF: none DIET: NPO after midnight DVT ppx: SCDs Code: DNR, proxy is friend Charisma Crowder [facility] MIPS - Admit I confirm the patient?s Advance Care Plan is present, Code status is documented, Surrogate decision maker is in patient?s record [If Yes, STOP here]: Yes
[2020-09-14 17:29] LABS: Folate 10.4 ng/mL (2.76-20.0); Vitamin B12 236 pg/mL (239-931)
--- NOTE | 2020-09-14 17:32 | DI.ECHO.S_ITS ---
[facility] +---------+ [facility] +---------+ : : [address] : : : : [id number] : : : : Phone: [phone] Echocardiogram Report + + :Name: JUAN CARLOS MCGEE V Study Date: 09/15/2020 Height: 61 in : :[facility] ReadingLocation: Weight: 110 lb : : Gender: Female BSA: 1.5 m2 : :: 1940 Age: 79 yrs BP: 148/67 mmHg: :Reason For Study: Murmur : :Ordering Physician: : :JEANNE GHOSH Performed By: Travis Bradford : :Referring: JEANNE GHOSH : + + Interpretation Summary The study quality was technically difficult. The ejection fraction is estimated to be 60-65%. There is moderate mitral regurgitation. There is mild aortic stenosis. There is mild tricuspid regurgitation. The right ventricular systolic pressure is estimated to be at least 46 mmHg based on an estimated right atrial pressure of 8 mm Hg. Procedure: A two-dimensional transthoracic echocardiogram with color flow and Doppler was performed. The study quality was technically difficult. There is no prior echocardiogram noted for this patient. A contrast injection of Definity was performed to improve assessment of LV function. Left Ventricle: The left ventricle is normal in size and wall thickness. Left ventricular systolic function is normal. The ejection fraction is estimated to be 60-65%. There are no focal wall motion abnormalities. Diastolic parameters suggest a pseudonormalization pattern, consistent with probable elevated filling pressures. Right Ventricle: The right ventricle is normal in size and function. Atria: The left atrium is mildly dilated. The right atrium is normal in size. There is no Doppler evidence for an interatrial shunt. Mitral Valve: There is mild mitral annular calcification. There is moderate mitral regurgitation. Aortic Valve: The aortic valve is not well visualized. There is mild aortic stenosis. The aortic valve mean gradient is 13 mmHg. No aortic regurgitation is present. Tricuspid Valve: The tricuspid valve is normal in structure but is abnormal in function. There is mild tricuspid regurgitation. The right ventricular systolic pressure is estimated to be at least 46 mmHg based on an estimated right atrial pressure of 8 mm Hg. Pulmonic Valve: The pulmonic valve is not well visualized. There is no pulmonic valvular regurgitation. Great Vessels: The aortic root is normal size. The dimensions of the ascending aorta are normal. The IVC is of normal diameter and collapses less than 50% with a sniff. This suggests a right atrial pressure of 8 mm Hg. Pericardium/ Pleura There is no pericardial effusion. There is no pleural effusion. MMode/2D Measurements & Calculations LVIDd: 4.6 cm LVOT diam: 1.9 cm LVIDs: 3.3 cm Ao root diam: 2.9 cm FS: 29.6 % asc Aorta Diam: 2.7 cm IVSd: 0.69 cm LVPWd: 0.85 cm LV holland. diameter/BSA (cm/m^2): 3.2 LV sys. diameter/BSA (cm/m^2): 2.2 LA A2 area: 16.0 cm2 RA area: 14.8 cm2 LA A4 area: 18.8 cm2 IVC diam: 1.5 cm LA length (vol): 4.5 cm LA vol: 56.9 ml LA vol index: 38.8 ml/m2 RVD1 (basal): 3.3 cm TAPSE: 2.2 cm Doppler Measurements & Calculations Ao V2 max: 240.8 cm/sec LVOT Max Arun: 89.3 cm/sec Ao V2 mean: 172.0 cm/sec LV V1 max P.2 mmHg Ao max P.2 mmHg LV V1 VTI: 22.4 cm Ao mean P.2 mmHg URSULA(I,D): 1.1 cm2 Ao V2 VTI: 55.6 cm URSULA(V,D): 1.1 cm2 sev ratio: 0.40 URSULA indexed to BSA (cm^2/m^2): 0.78 MV E max arun: 165.6 cm/sec TR max arun: 308.3 cm/sec MV A max arun: 150.7 cm/sec TR max P.0 mmHg MV E/A: 1.1 PA pr(Accel): 22.5 mmHg Med Peak E' Arun: 4.0 cm/sec E/E' med: 40.9 Lat Peak E' Arun: 6.4 cm/sec E/E' lat: 26.1 E/e' average: 33.5 MV dec time: 0.22 sec MR VTI: 193.6 [facility]): 63.6 ml Reading Physician:10:39 AM
--- NOTE | 2020-09-14 20:31 | P.CONS_ITS ---
History of Present Illness Consult details Date Patient Seen: 09/14/20 Time Patient Seen: 20:31 Chief complaint: states, dont have any red blood cells Reason for consult: Suspected GI source of severe anemia Requesting provider: José Manuel Conn Narrative: This is an 79yo woman with h/o peptic ulcer disease peripheral vascular disease s/p fem-fem bypass who comes in with anemia. She had EGD and colonoscopy in 06/2018 with finding of gastric ulcers as a likely source of her anemia. She was put on a PPI and her ulcers were found to be healed on follow up EGD in 01/2019. She notes that for the last two weeks she has been feeling weaker. She c/o dizziness, ALFONSO. She is no longer taking her PPI. She denies alcohol or NSAID use. She is on plavix. She has not noticed any bleeding, no hematemesis, hematochezia or melena. She was sent to the ER by her primary care after checking labs and finding her to be severely anemic with Hgb 4.5. She says she feels tired, but is otherwise ok. ROS: Reports fatigue, weakness, denies melena, denies hematochezia. Thirteen system review is otherwise negative other than as mentioned below and in HPI. PE: GENERAL: Alert, pale. Appears stated age. Answers questions promptly and appropriately. Vital signs noted. HENT: Normocephalic, atraumatic. Hearing intact. EYES: Conjunctiva pale, sclera white, no periorbital swelling. CARDIOVASCULAR: Regular rate. No pedal edema. RESPIRATORY: Non-tachypneic, breathing comfortably on room air. GASTROINTESTINAL: Abdomen soft and non-distended; non tender GENITALURINARY: No flank tenderness. MUSCULOSKELETAL: Equal tone and mass bilaterally. SKIN: Warm, dry, soft, appropriate color for ethnicity. No other lesions, rashes, or wounds. NEURO: Alert and Oriented X 3. No gross sensory deficits, or cognitive issues. PSYCH: Appropriate affect and mood. Meds Home Medications and Allergies Home Medications Medication Instructions Recorded Confirmed Type clopidogrel 75 mg tablet 75 mg PO DAILY 05/27/18 09/14/20 History gabapentin 100 mg PO DAILY 09/14/20 09/14/20 History sertraline 50 mg PO BEDTIME 09/14/20 09/14/20 History Allergies Allergy/AdvReac Type Severity Reaction Status Date / Time No Known Drug Allergies Allergy Verified 09/14/20 14:22 Exam Vital Signs (past 8 hours): - 09/14/20 14:18 09/14/20 14:19 09/14/20 14:30 Temperature 98.2 F Pulse Rate 104 H 92 H 83 Respiratory Rate 15 17 18 Blood Pressure 135/53 L 126/57 L Pulse Oximetry 100 99 99 09/14/20 15:00 09/14/20 15:30 09/14/20 15:31 Temperature Pulse Rate 89 91 H 90 Respiratory Rate 18 20 17 Blood Pressure 135/60 127/55 L Pulse Oximetry 98 09/14/20 15:40 09/14/20 16:00 09/14/20 16:05 Temperature 98 F 98.1 F Pulse Rate 83 91 H 91 H Respiratory Rate 16 19 17 Blood Pressure 127/55 L 132/57 L 132/57 L Pulse Oximetry 97 09/14/20 16:15 09/14/20 18:10 09/14/20 18:18 Temperature 98.8 F 97.6 F 97.6 F Pulse Rate 93 H 82 82 Respiratory Rate 18 17 17 Blood Pressure 134/51 L 128/54 L 128/54 L Pulse Oximetry 97 98 09/14/20 18:28 09/14/20 18:44 Temperature 97.6 F 97.4 F L Pulse Rate 82 87 Respiratory Rate 17 17 Blood Pressure 128/54 L 137/43 L Pulse Oximetry Oxygen Delivery Method Room Air Oxygen Flow Rate 0 Objective Labs Result Diagrams: 09/14/20 14:17 09/14/20 14:17 Labs: Laboratory Results - last 24 hr 09/14/20 09/14/20 09/14/20 14:17 14:17 14:17 WBC 2.9 L RBC 2.33 L Hgb 4.5 L* Hct 15.5 L* MCV 66.6 L MCH 19.3 L MCHC 29.0 L RDW 21.1 H Plt Count 184 Neut % (Auto) 74.6 Lymph % (Auto) 17.0 L [place] % (Auto) 6.9 Eos % (Auto) 1.0 L Baso % (Auto) 0.5 Neut # (Auto) 2100 Lymph # (Auto) 500 L [place] # (Auto) 200 Eos # (Auto) 0 Baso # (Auto) 0 RBC Morphology See below Hypochromasia 1+ H Poikilocytosis 2+ H Anisocytosis 2+ H Microcytosis 2+ H Tear Drop Cells 1+ H Ovalocytes 1+ H Percent Retic PT 13.2 H INR 1.2 APTT Sodium 139 Potassium 3.5 Chloride 106 Carbon Dioxide 21 L BUN 12 Creatinine 0.62 Estimated GFR > 60.0 BUN/Creatinine Ratio 19.4 Glucose 100 Calcium 8.7 Iron TIBC % Saturation Transferrin Total Bilirubin 0.4 AST 23 ALT 12 Alkaline Phosphatase 72 Lactate Dehydrogenase Total Protein 6.8 Albumin 4.0 Globulin 2.8 Albumin/Globulin Ratio 1.4 Vitamin B12 Folate SARS-CoV-2 (PCR) Blood Type Antibody Screen Crossmatch 09/14/20 09/14/20 09/14/20 14:17 14:17 14:26 WBC RBC Hgb Hct MCV MCH MCHC RDW Plt Count Neut % (Auto) Lymph % (Auto) [place] % (Auto) Eos % (Auto) Baso % (Auto) Neut # (Auto) Lymph # (Auto) [place] # (Auto) Eos # (Auto) Baso # (Auto) RBC Morphology Hypochromasia Poikilocytosis Anisocytosis Microcytosis Tear Drop Cells Ovalocytes Percent Retic PT INR APTT 36 Sodium Potassium Chloride Carbon Dioxide BUN Creatinine Estimated GFR BUN/Creatinine Ratio Glucose Calcium Iron TIBC % Saturation Transferrin Total Bilirubin AST ALT Alkaline Phosphatase Lactate Dehydrogenase 418 Total Protein Albumin Globulin Albumin/Globulin Ratio Vitamin B12 236 L Folate 10.4 SARS-CoV-2 (PCR) Blood Type O Positive Antibody Screen Negative Crossmatch See Detail 09/14/20 09/14/20 09/14/20 14:35 14:35 14:37 WBC RBC Hgb Hct MCV MCH MCHC RDW Plt Count Neut % (Auto) Lymph % (Auto) [place] % (Auto) Eos % (Auto) Baso % (Auto) Neut # (Auto) Lymph # (Auto) [place] # (Auto) Eos # (Auto) Baso # (Auto) RBC Morphology Hypochromasia Poikilocytosis Anisocytosis Microcytosis Tear Drop Cells Ovalocytes Percent Retic 3.3 H PT INR APTT Sodium Potassium Chloride Carbon Dioxide BUN Creatinine Estimated GFR BUN/Creatinine Ratio Glucose Calcium Iron 12 L TIBC 471 % Saturation 3 L Transferrin 370 Total Bilirubin AST ALT Alkaline Phosphatase Lactate Dehydrogenase Total Protein Albumin Globulin Albumin/Globulin Ratio Vitamin B12 Folate SARS-CoV-2 (PCR) Negative Blood Type Antibody Screen Crossmatch Assessment & Plan Assessment and plan (1) Anemia: Qualifiers: Anemia type: iron deficiency Iron deficiency anemia type: unspecified iron deficiency Qualified Code(s): D50.9 - Iron deficiency anemia, unspecified Status: Acute (2) History of peptic ulcer disease: Status: Acute Assessment & Plan narrative: This is an 79 yo woman with history of peptic ulcers, now with anemia hgb 4.5. She say she is not taking her PPI any more. She denies abdominal pain. She may have another source of her anemia, but GI source seems most likely. General surgery was consulted for EGD. We will continue to follow. When the patient is stable for EGD with sedation please contact the surgeon professor of environmental engineering. COVID-19 COVID-19 status: Negative Result date/Date tested (Pos, Neg/Pending): 09/14/20 Time Spent With Patient Time with patient: 15-24 minutes
[2020-09-14] MEDS: PANTOPRAZOLE 40 MG VIAL IV (20:36)
[2020-09-14] MEDS: SERTRALINE 50 MG TABLET PO (20:36)
[2020-09-15] VITALS (21 sets, daily range): BP systolic 99–182; BP diastolic 30–79; PULSE 79–118; RESP 10–25; TEMP 35.8–36.5; O2SAT 90–100; BMI 20.7
[2020-09-15 00:13] LABS: Basophils Absolute Auto 0 /uL (0-100); Basophils Percent Auto 0.8 % (0-2); Eosinophils Absolute Auto 100 /uL (0-450); Eosinophils Percent Auto 2.6 % (2-4); Hematocrit 27.4 % (36-46); Hemoglobin 9.1 g/dL (12.0-16.0); Lymphocytes Absolute Auto 800 /uL (1100-4500); Lymphocytes Percent Auto 25.3 % (25-40); Mean Corpuscular HGB Conc 33.2 % (30-36); Mean Corpuscular Volume 75.3 fL (80-100); Monocytes Absolute Auto 200 /uL (0-900); Monocytes Percent Auto 7.7 % (3-14); Neutrophils Absolute Auto 1900 /uL (1500-7000); Neutrophils Percent Auto 63.6 % (50-75); Platelet Count 143 X10^3/uL (150-400); Red Blood Cell Count 3.64 X10^6/uL (4.0-5.2); Red Cell Distribution Width 23.6 % (11.6-14.8)
[2020-09-15 00:16] LABS: Add Manual Diff / Slide Review SLIDE REVIEW
[2020-09-15 04:09] LABS: Anisocytosis 3+
[2020-09-15 04:36] LABS: Haptoglobin 93 mg/dL (42-346)
--- NOTE | 2020-09-15 05:03 | DI.RAD.S_ITS ---
PROCEDURE: XR CHEST 1V INDICATIONS: Acute shortness of breath TECHNIQUE: One view of the chest was acquired. COMPARISON: None. FINDINGS: Surgical changes and devices: None. Lungs and pleura: Interstitial prominence noted in the lungs bilaterally. Nhan B lines noted. Trace bilateral pleural effusions. Patchy opacities noted in the lung bases bilaterally. Mediastinum: Mediastinal contours appear normal. Heart is enlarged Bones and chest wall: No suspicious bony lesions. Overlying soft tissues appear unremarkable. IMPRESSION: 1. Cardiomegaly with interstitial prominence including Nhan B-lines concerning for CHF. 2. Patchy opacities in lung bases bilaterally which could represent atelectasis, aspiration or pneumonia. Dictated by: Jackie Guardado MD, PhD on 09/15/2020 at 8:55 Approved by: Jackie Guardado MD, PhD on 09/15/2020 at 8:56
--- NOTE | 2020-09-15 05:10 | PC.NURSE ---
@450 obtaining 2nd set of VS for shift, pt in left lateral position with audible wheezing heard, when I asked pt if she was feeling SOB, she denied it at the time. pulse ox read 90-92% on RA. RN informed of audible wheezing. Pt was sat up in bed approx 45 degrees before assisting to bathroom. Asked pt if she was dizzy/light headed or feeling SOB when sitting up at side of bed, she denied any of those symptoms. Assisted pt to bathroom with FWW without any complications. Wheezing was audible while assisting pt from bed to bathroom and back to bed, but when asked while transferring she denied any difficulty breathing or dizziness. When pt was sat back in bed and lying down at approx 40-45 degree angle she reported some difficulty breathing. RN informed of SOB, who then evaluated pt and informed CAGE TENDER.
[2020-09-15 05:14] LABS: Add Manual Diff / Slide Review SLIDE REVIEW; Basophils Absolute Auto 0 /uL (0-100); Eosinophils Absolute Auto 100 /uL (0-450); Eosinophils Percent Auto 2.2 % (2-4); Hematocrit 31.3 % (36-46); Hemoglobin 10.1 g/dL (12.0-16.0); Lymphocytes Absolute Auto 800 /uL (1100-4500); Lymphocytes Percent Auto 19.1 % (25-40); Mean Corpuscular HGB Conc 32.4 % (30-36); Mean Corpuscular Hemoglobin 24.4 PG (26-34); Mean Corpuscular Volume 75.3 fL (80-100); Monocytes Absolute Auto 300 /uL (0-900); Monocytes Percent Auto 6.2 % (3-14); Neutrophils Absolute Auto 3100 /uL (1500-7000); Neutrophils Percent Auto 71.5 % (50-75); Platelet Count 155 X10^3/uL (150-400); Red Blood Cell Count 4.15 X10^6/uL (4.0-5.2); Red Cell Distribution Width 24.1 % (11.6-14.8); White Blood Cell Count 4.3 X10^3/uL (4.5-11.0)
[2020-09-15 05:17] LABS: INR 1.1 (0.9-1.3); Prothrombin Time 12.4 SECONDS (10.1-12.7)
[2020-09-15 05:18] LABS: HEMOLYSIS < 15 (0-50)
[2020-09-15 05:26] LABS: Alanine Aminotransferase 10 IU/L (<35); Albumin 3.8 g/dL (3.5-5.0); Blood Urea Nitrogen 12 mg/dL (7-17); Potassium 3.8 mmol/L (3.4-5.1); Sodium 139 mmol/L (137-145)
[2020-09-15 05:27] LABS: D Dimer 417 ng/mL (<230)
--- NOTE | 2020-09-15 05:27 | PC.NURSE ---
Noted Audible wheezing. Auscultated her lung sounds wheezing through all lung burrell. Crackles to LLL, Transportation Department Supervisor Dejuan notified see orders. After pt. resting in bed she said I'm breathing a little easier. Rechecked her VS B/P 115/72, HR. 79, RR 22 & SPO2 In RA 93-95%. Will monitor.
[2020-09-15 05:28] LABS: HCO3 VBG 22 mmol/L (23-28); PCO2 VBG 34.7 mmHg (45-50); PO2 VBG 36 mmHg (35-45); Total CO2 VBG 23 mmol/L (24-29)
[2020-09-15 05:29] LABS: Oxygen Saturation VBG 71 % (70-75); pH VBG 7.41 (7.33-7.43)
--- NOTE | 2020-09-15 05:34 | RT ---
Paged by RN to assess pt and obtain VBG. Pt got up to use the bathroom and began to develop SOB. Pt was given 3 units of blood due prior due to Hgb of 4 and Hct of 15. CXR done at bedside and showed hazy opacities in lung bases, but pending interpretation by radiologist. Pt is on RA, SpO2 93%, RR 21, HR 73. VBG done. Pt is a former smoker, and does not take respiratory meds at home. Recommending diuretics and O2 therapy as needed. Will monitor PRN.
[2020-09-15 05:38] LABS: Alkaline Phosphatase 71 U/L (38-126); Aspartate Aminotransferase 22 IU/L (14-36); Bilirubin Total 0.5 mg/dL (0.2-1.3); Calcium 8.7 mg/dL (8.4-10.2); Chloride 108 mmol/L (98-107); Glucose 104 mg/dL (80-110)
[2020-09-15 05:39] LABS: Albumin Globulin Ratio 1.4 (1.0-2.8); BUN Creatinine Ratio 20.7 (6-22); Carbon Dioxide 23 mmol/L (22-32); Estimated Glomerular Filt Rate > 60.0 mL/min (>60); Globulin 2.8 g/dL (1.7-4.1); Total Protein 6.6 g/dL (6.3-8.2)
[2020-09-15 05:42] LABS: HEMOLYSIS < 15 (0-50); Iron 17 ug/dL (37-170)
[2020-09-15 05:53] LABS: Percent Iron Saturation 4 % (15-50); Total Iron Binding Capacity 447 ug/dL (265-497); Transferrin 358 mg/dL (206-381)
[2020-09-15 06:27] LABS: Vitamin B12 234 pg/mL (239-931)
[2020-09-15 06:36] LABS: Microcytosis 1+
[2020-09-15 06:37] LABS: Hypochromasia 1+
[2020-09-15 06:38] LABS: Anisocytosis 3+
--- NOTE | 2020-09-15 09:24 | PC.NURSE ---
Assess- Patients midline and 2 smaller incisions sites all cdi with small amount of old bloody drainage. She denies pain or nausea. BT are hypoactive but present. She is visiting with her and has had a small bowel movement that was loose.
[2020-09-15] MEDS: FUROSEMIDE 40 MG/4 ML VIAL IV (09:30)
[2020-09-15] MEDS: PANTOPRAZOLE 40 MG VIAL IV ×2 (09:30→20:33)
[2020-09-15] MEDS: diphenhydrAMINE 50 MG/ML VIAL 25 MG IV (10:18)
[2020-09-15] MEDS: ALBUTEROL 2.5 MG/3 ML NEB (ADULT) INH (10:18)
--- NOTE | 2020-09-15 10:30 | PM.PREOP ---
Pre-operative Note COVID-19 COVID-19 status: Negative Result date/Date tested (Pos, Neg/Pending): 09/14/20 Interval Note History & Physical reviewed/Exam performed by Physician: Yes Changes to H&P: No H&P completed within 30 days and has changed as indicated here:: Discussed risks of bleeding perforation with her. Discussed the procedure and rationale. She has consented to an EGD. She did his some airway wheezing after transfusion. She seemed to respond to Lasix and Benadryl. She is oxygenating well. ASA Class (for procedural sedation): III
--- NOTE | 2020-09-15 11:27 | PC.NURSE ---
Addendum entered by Nely Bray R.N. 09/15/20 13:29: Patient back from EGD and is now going to get some mag citrate to start prep for colonoscopy, she will start go erin mathew around 1999. Original Note: Patient down to egd around 0945. She was given 40mg of iv lasix prior to leaving and her iv protonix. She was sob and wheezing before given lasix. She is a one person assist to get up to commode.
--- NOTE | 2020-09-15 11:59 | PM.OP.ENDO ---
Operative Date/Time/Diagnoses Date of procedure: 09/15/20 Time of procedure: 11:59 Pre-op diagnosis: Anemia. Microcytic Post-op diagnosis: same Procedure & Clinicians Study performed: EGD Same procedure as scheduled: Yes Indications: Try to determine cause of anemia Surgeon: Garry Cardozo Procedure Notes SCOAP/Timeout: Performed Procedure in detail: The patient had topical anesthetic applied to oropharynx. She was placed in left lateral decubitus position and underwent general endotracheal anesthesia. An anesthesiologist was involved because the patient's complex medical history as well as the fact that blood caused her to wheeze and I was concerned about her airway. A bite block was inserted adjacent to the ET tube and the scope was advanced through it into the esophagus. The esophagus was unremarkable. GE junction was noted at 40 cm from the incisors. The stomach insufflated well. There were no lesions seen in the body, antrum or at the incisura. The pyloric channel was patent. The duodenum was unremarkable to the 4th part. The scope was brought back into the stomach and retroflexed. The proximal stomach normal in appearance. The scope was straightened and brought out through the esophagus again. I noted a possible esophageal diverticulum in the midesophagus. It did not appear to be the source of any blood loss however. The scope was removed and the patient tolerated the procedure well. Scope withdrawal time: Not applicable Sedation minutes: 0 (Patient provide had procedure under general anesthesia) Findings: other findings (Normal exam. No source of blood loss found.) Specimen(s): none sent Complications: none Post-procedure Follow up: as needed Disposition: PACU
--- NOTE | 2020-09-15 13:05 | PT.IPTN ---
Current Diagnoses Iron deficiency anemia, unspecified (09/14/20) Personal history of peptic ulcer disease (09/14/20) Surgery Performed Operation Date: 09/15/20 10:45 Actual Procedures p Esophagogastroduodenoscopy - Garry Cardozo MD Operation Date: 09/16/20 09:00 <No data on this case meets the specified criteria> Physical Therapy Treatment Note M3 PT-IP Subjective Start: 09/15/20 13:18 Freq: NEEDED Status: Active Protocol: Document 09/15/20 13:05 AB (Rec: 09/15/20 13:22 AB [id number]) Subjective Physical Therapy Visit Type Type Patient Refusal Notes Pt just had EGD procedure and just came back and refused PT. stated that she just wants to rest at this time. c/o slight headache. Student nurse stated that pt went on sinus tachycardia during her EGD procedure. resting HR at this time 99-103 bpm. will f/ u with pt tomorrow and pt agreed. obtained PLOF and home set up from pt and pt's friend present in room.
[2020-09-15] MEDS: MAGNESIUM CITRATE 300 ML SOLUTION 150 ML PO (13:53)
--- NOTE | 2020-09-15 15:10 | P.PN_ITS ---
Subjective Subjective Date Patient Seen: 09/15/20 Time Patient Seen: 08:10 Interval history: She received PRBC overnight, 3 units. She developed some shortness of breath. This morning she feels she has more energy, but has more shortness of breath. Chest xray done and showed interstitial prominence and trace effusions Exam Vital Signs (past 8 hours): - 09/15/20 07:45 09/15/20 10:02 09/15/20 11:58 Temperature 97.0 F L 97.2 F L 97.7 F Pulse Rate 87 102 H 118 H Respiratory Rate 16 25 H 16 Blood Pressure 148/67 H 182/79 H 129/44 L Pulse Oximetry 93 100 95 09/15/20 12:03 09/15/20 12:08 09/15/20 12:13 Temperature Pulse Rate 109 H 105 H 100 H Respiratory Rate 12 16 10 L Blood Pressure 119/30 L 117/45 L 103/42 L Pulse Oximetry 94 95 90 L 09/15/20 12:18 09/15/20 12:23 09/15/20 12:28 Temperature Pulse Rate 98 H 103 H 98 H Respiratory Rate 16 18 18 Blood Pressure 114/48 L 117/57 L 116/45 L Pulse Oximetry 97 95 93 09/15/20 12:33 09/15/20 13:25 09/15/20 13:28 Temperature 97.2 F L 97.2 F L Pulse Rate 97 H 101 H 99 H Respiratory Rate 14 10 L 14 Blood Pressure 117/40 L 133/59 L 126/59 L Pulse Oximetry 96 94 93 09/15/20 13:58 09/15/20 14:28 Temperature 97.2 F L 97.3 F L Pulse Rate 105 H 96 H Respiratory Rate 16 16 Blood Pressure 128/49 L 123/60 Pulse Oximetry 90 L 94 Oxygen Delivery Method Nasal Cannula Oxygen Flow Rate 0 Narrative Exam Narrative: GEN: fatigued, elderly, chronically ill appearing, no acute distress HEENT: PERRL, pale conjunctiva, dry mucous membranes CV: tachycardic, regular, 2/6 systolic ejection murmur PULM: clear bilaterally, no wheezes, rhonchi or rales ABD: soft, nontender, nondistended, no organomegaly, normal bowel sounds EXT: warm and well perfused with no edema NEURO: AAOx3, moving all extremities SKIN: no rashes PSYCH: pleasant mood, cooperative Objective Labs Result Diagrams: 09/15/20 04:55 09/15/20 04:55 Labs: Laboratory Results - last 24 hr 09/14/20 09/14/20 09/14/20 14:17 14:17 14:26 WBC RBC Hgb Hct MCV MCH MCHC RDW Plt Count Neut % (Auto) Lymph % (Auto) [place] % (Auto) Eos % (Auto) Baso % (Auto) Neut # (Auto) Lymph # (Auto) [place] # (Auto) Eos # (Auto) Baso # (Auto) RBC Morphology See below Hypochromasia 1+ H Poikilocytosis 2+ H Anisocytosis 2+ H Microcytosis 2+ H Tear Drop Cells 1+ H Ovalocytes 1+ H Percent Retic Haptoglobin PT INR D-Dimer VBG pH VBG pCO2 VBG pO2 VBG HCO3 VBG Total CO2 VBG O2 Saturation VBG Base Excess Sodium Potassium Chloride Carbon Dioxide BUN Creatinine Estimated GFR BUN/Creatinine Ratio Glucose Calcium Iron TIBC % Saturation Transferrin Total Bilirubin AST ALT Alkaline Phosphatase Lactate Dehydrogenase 418 Total Protein Albumin Globulin Albumin/Globulin Ratio Vitamin B12 236 L Folate 10.4 SARS-CoV-2 (PCR) Blood Type O Positive Antibody Screen Negative Crossmatch See Detail 09/14/20 09/14/20 09/14/20 14:35 14:35 14:35 WBC RBC Hgb Hct MCV MCH MCHC RDW Plt Count Neut % (Auto) Lymph % (Auto) [place] % (Auto) Eos % (Auto) Baso % (Auto) Neut # (Auto) Lymph # (Auto) [place] # (Auto) Eos # (Auto) Baso # (Auto) RBC Morphology Hypochromasia Poikilocytosis Anisocytosis Microcytosis Tear Drop Cells Ovalocytes Percent Retic 3.3 H Haptoglobin 93 PT INR D-Dimer VBG pH VBG pCO2 VBG pO2 VBG HCO3 VBG Total CO2 VBG O2 Saturation VBG Base Excess Sodium Potassium Chloride Carbon Dioxide BUN Creatinine Estimated GFR BUN/Creatinine Ratio Glucose Calcium Iron 12 L TIBC 471 % Saturation 3 L Transferrin 370 Total Bilirubin AST ALT Alkaline Phosphatase Lactate Dehydrogenase Total Protein Albumin Globulin Albumin/Globulin Ratio Vitamin B12 Folate SARS-CoV-2 (PCR) Blood Type Antibody Screen Crossmatch 09/14/20 09/14/20 09/15/20 14:37 23:50 04:55 WBC 3.0 L 4.3 L RBC 3.64 L 4.15 Hgb 9.1 L 10.1 L Hct 27.4 L 31.3 L MCV 75.3 L D 75.3 L MCH 25.0 L 24.4 L MCHC 33.2 D 32.4 RDW 23.6 H 24.1 H Plt Count 143 L 155 Neut % (Auto) 63.6 71.5 Lymph % (Auto) 25.3 19.1 L [place] % (Auto) 7.7 6.2 Eos % (Auto) 2.6 2.2 Baso % (Auto) 0.8 1.0 Neut # (Auto) 1900 3100 Lymph # (Auto) 800 L 800 L [place] # (Auto) 200 300 Eos # (Auto) 100 100 Baso # (Auto) 0 0 RBC Morphology See below See below Hypochromasia 1+ H Poikilocytosis Anisocytosis 3+ H 3+ H Microcytosis 1+ H Tear Drop Cells Ovalocytes Percent Retic Haptoglobin PT INR D-Dimer VBG pH VBG pCO2 VBG pO2 VBG HCO3 VBG Total CO2 VBG O2 Saturation VBG Base Excess Sodium Potassium Chloride Carbon Dioxide BUN Creatinine Estimated GFR BUN/Creatinine Ratio Glucose Calcium Iron TIBC % Saturation Transferrin Total Bilirubin AST ALT Alkaline Phosphatase Lactate Dehydrogenase Total Protein Albumin Globulin Albumin/Globulin Ratio Vitamin B12 Folate SARS-CoV-2 (PCR) Negative Blood Type Antibody Screen Crossmatch 09/15/20 09/15/20 09/15/20 04:55 04:55 04:55 WBC RBC Hgb Hct MCV MCH MCHC RDW Plt Count Neut % (Auto) Lymph % (Auto) [place] % (Auto) Eos % (Auto) Baso % (Auto) Neut # (Auto) Lymph # (Auto) [place] # (Auto) Eos # (Auto) Baso # (Auto) RBC Morphology Hypochromasia Poikilocytosis Anisocytosis Microcytosis Tear Drop Cells Ovalocytes Percent Retic Haptoglobin PT 12.4 INR 1.1 D-Dimer VBG pH VBG pCO2 VBG pO2 VBG HCO3 VBG Total CO2 VBG O2 Saturation VBG Base Excess Sodium 139 Potassium 3.8 Chloride 108 H Carbon Dioxide 23 BUN 12 Creatinine 0.58 Estimated GFR > 60.0 BUN/Creatinine Ratio 20.7 Glucose 104 Calcium 8.7 Iron 17 L TIBC 447 % Saturation 4 L Transferrin 358 Total Bilirubin 0.5 AST 22 ALT 10 Alkaline Phosphatase 71 Lactate Dehydrogenase Total Protein 6.6 Albumin 3.8 Globulin 2.8 Albumin/Globulin Ratio 1.4 Vitamin B12 234 L Folate SARS-CoV-2 (PCR) Blood Type Antibody Screen Crossmatch 09/15/20 09/15/20 04:55 05:17 WBC RBC Hgb Hct MCV MCH MCHC RDW Plt Count Neut % (Auto) Lymph % (Auto) [place] % (Auto) Eos % (Auto) Baso % (Auto) Neut # (Auto) Lymph # (Auto) [place] # (Auto) Eos # (Auto) Baso # (Auto) RBC Morphology Hypochromasia Poikilocytosis Anisocytosis Microcytosis Tear Drop Cells Ovalocytes Percent Retic Haptoglobin PT INR D-Dimer 417 H VBG pH 7.41 VBG pCO2 34.7 L VBG pO2 36 VBG HCO3 22 L VBG Total CO2 23 L VBG O2 Saturation 71 VBG Base Excess -3.0 L Sodium Potassium Chloride Carbon Dioxide BUN Creatinine Estimated GFR BUN/Creatinine Ratio Glucose Calcium Iron TIBC % Saturation Transferrin Total Bilirubin AST ALT Alkaline Phosphatase Lactate Dehydrogenase Total Protein Albumin Globulin Albumin/Globulin Ratio Vitamin B12 Folate SARS-CoV-2 (PCR) Blood Type Antibody Screen Crossmatch [facility] Surgical History 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 Sherman is an 79W with PMH gastric ulcers, PVD who presents with symptomatic anemia. 1. Anemia, acute -initial hgb of 4.7, after transfusion of 3U improved to 10.1 -slight guaiac positive stools in ED -no overt bleeding -previously had gastric ulcers noted on EGD however repeat EGD on 09/15 with no evidence of ulcers or bleed -notable iron deficiency, consistent with possible slow GI losses -appreciate surgery following, plan for colonoscopy on 09/16 with prep night of 09/15 -other considerations for anemia are bone marrow failure are considered as patient has leukopenia, borderline low platelets. Ldh is normal, retic count is mildly elevated. Haptoglobin normal. No renal disease. If colonoscopy negative will need hematology referral likely as outpatient 2. Pancytopenia -unclear etiology -will trend daily -labs as noted above with normal ldh, slightly low b12, low folate, normal haptoglobin -increases suspicion for possible bone marrow process -hematology referral as mentioned above pending colonoscopy results 3. Mild B12 deficiency, initially at 236 -could explain mild lymphocytopenia and thrombocytopenia -doubt this is cause of significant anemia as MCV is low -will order for b12 supplementation 4. Mild aortic stenosis with mild shortness of breath -likely contributed to mild volume overload after transfusion -ordered lasix for diuresis -ECHO shows normal EF, but does have noted pseudonormalization consistent with elevated filling pressures likely contributing to patient's shortness of breath -no overt CHF currently 5. Peripheral vascular disease -hold plavix for now given anemia IVF: none DIET: NPO after midnight DVT ppx: SCDs Code: DNR, proxy is friend Charisma Crowder Time Spent With Patient Time with patient: 15-24 minutes
--- NOTE | 2020-09-15 15:19 | CM.IDA ---
Initial DCP Assessment Note Patient is an 79 yo female, resident of [place], presents w/severe anemia/iron deficiency. PMH includes peptic ulcers. EGD completed today w/no findings. Colonoscopy scheduled for tomorrow. PCP: Rojelio Covarrubias Payer: [facility]/Mikayla luong Dimitrios Reviewed chart, met w/patient and her friend Charisma at bedside, patient gave permission to proceed. Patient very lethargic during this brief visit and about to begin her bowel prep for colonoscopy tomorrow. Patient lives alone, friend Marisela lives down the street we've known each other for years. Patient considering naming her friend DAVID because sons live out of town. Patient able to complete most ADLs indp, uses a FWW in her home; friend states patient has had a difficult time showering because walker does not fit down the narrow hallway of her manufactured home into her BR. Patient does not tolerate standing w/o AD very well. Patient and friend ask about assist with/from: HH, meal prep, and DME? Discussed process for HH referral (no HH agency preference from patient, still need F2F signed and referral faxed), discussed meals on wheels vs [employer] meal delivery vs ? (dietary consult might be helpful depending on medical POC) and strongly encouraged friend to secure BSC for patient PRADIP. Will follow closely as medical POC unfolds and reassess DC needs over the next 24-48 hrs. No referral to services made today. MANDO Moncada Discharge Planning/Care Management CM Discharge Assessment Start: 09/15/20 15:01 Freq: Status: Active Protocol: Document 09/15/20 15:15 KESHAV (Rec: 09/15/20 15:18 KESHAV [id number]) Discharge Planning Assessment Assigned Paralegal Secretary MANDO Holland DPJOSE MIGUEL/Assigned Designee Name Star Zamora, son ([place]) Tima Zamora, son ( [place]) [phone] Contact Information Charisma Crowder, good friend ([place] down the street) Advance Directives? Yes Advance Directives on File No History Provided By Patient,Friend Prior Living Arrangements Mobile home Comment Manufactured Home Household Members none Type of transporation used prior to Drives own vehicle admit Independent with ADL's Yes Is patient alert and oriented? Yes Needs Assistance With Home Chores / Shopping DME Already Rented / Owned FWW / Walker Patient/Family Preference Home with Home Health Barriers to Discharge Yes Comment Depending on medical POC, friend suggests HH will be helpful and patient agrees Discharge Plan Home Transportation Arrangement Friend or family
--- NOTE | 2020-09-15 15:58 | PC.NURSE ---
Addendum entered by Yvonne Crews R.N. 09/15/20 22:13: Pt requires frequent encouragement by staff to continue to drink golytely prep. Addendum entered by Yvonne Crews R.N. 09/15/20 21:23: Pt reports breathing is okay and taking golytely prep 3000 cc's as ordered. Pt sleepy, but easily rouses to void. Head of bed elevated for oral intake. Addendum entered by Yvonne Crews R.N. 09/15/20 18:48: Assisted to sit @ bedside per request to dangle legs. Returned to bed and requires assistance to reposition. Room air 95%. BL calf scd's in place. Original Note: Pt drowsy, but easily rousable resting quietly in bed. Continuous pulse oximetry in place. Room air 93-96%. Pt with occasional dry non-productive cough. Pt reports breathing has improved. Coarse breath sounds to posterior burrell BL with crackles to left lower lobe. Tele in place and reviewed with MINE ENGINEERING SUPERVISOR, Noel. Occasional irregular beat per auscultation. Abdomen is soft and puffy but nontender per pt statement. Pt provided with clear liquids and informed of plan of care this evening shift. Bed alarm in place and pt was instructed not to attempt out of bed without calling for assistance. Pt's friend, Charisma, is present in pt's room. Pt acknowledges understanding and agreement.
[2020-09-15] MEDS: SERTRALINE 50 MG TABLET PO (20:33)
[2020-09-15] MEDS: PEG3350/SOD SULF,BICARB,CL/KCL 4,000 ML SOLUTION 3000 ML PO (20:33)
[2020-09-15] MEDS: SODIUM CHLORIDE 0.9% FLUSH 10 ML IV (20:33)
[2020-09-16] VITALS (9 sets, daily range): BP systolic 93–129; BP diastolic 35–82; PULSE 67–79; RESP 14–20; TEMP 36.3–36.5; O2SAT 92–97; BMI 20.7
[2020-09-16 06:03] LABS: INR 1.2 (0.9-1.3); Prothrombin Time 13.6 SECONDS (10.1-12.7)
[2020-09-16 06:13] LABS: Alanine Aminotransferase 10 IU/L (<35); Albumin 3.8 g/dL (3.5-5.0); Albumin Globulin Ratio 1.4 (1.0-2.8); Alkaline Phosphatase 63 U/L (38-126); Aspartate Aminotransferase 27 IU/L (14-36); BUN Creatinine Ratio 17.7 (6-22); Basophils Absolute Auto 0 /uL (0-100); Basophils Percent Auto 0.3 % (0-2); Bilirubin Total 0.7 mg/dL (0.2-1.3); Blood Urea Nitrogen 11 mg/dL (7-17); Calcium 8.8 mg/dL (8.4-10.2); Carbon Dioxide 30 mmol/L (22-32); Chloride 101 mmol/L (98-107); Eosinophils Absolute Auto 0 /uL (0-450); Eosinophils Percent Auto 0.3 % (2-4); Estimated Glomerular Filt Rate > 60.0 mL/min (>60); Globulin 2.8 g/dL (1.7-4.1); Glucose 92 mg/dL (80-110); HEMOLYSIS < 15 (0-50); Hematocrit 29.5 % (36-46); Hemoglobin 9.8 g/dL (12.0-16.0); Lymphocytes Absolute Auto 700 /uL (1100-4500); Lymphocytes Percent Auto 17.7 % (25-40); Mean Corpuscular HGB Conc 33.1 % (30-36); Mean Corpuscular Hemoglobin 24.7 PG (26-34); Mean Corpuscular Volume 74.6 fL (80-100); Monocytes Absolute Auto 300 /uL (0-900); Monocytes Percent Auto 8.3 % (3-14); Neutrophils Absolute Auto 2800 /uL (1500-7000); Neutrophils Percent Auto 73.4 % (50-75); Platelet Count 154 X10^3/uL (150-400); Potassium 3.6 mmol/L (3.4-5.1); Red Blood Cell Count 3.96 X10^6/uL (4.0-5.2); Sodium 139 mmol/L (137-145); Total Protein 6.6 g/dL (6.3-8.2); Uric Acid 5.1 mg/dL (2.5-6.2); White Blood Cell Count 3.8 X10^3/uL (4.5-11.0)
[2020-09-16 06:19] LABS: Add Manual Diff / Slide Review SLIDE REVIEW
[2020-09-16 06:25] LABS: HEMOLYSIS < 15 (0-50); Iron 16 ug/dL (37-170)
[2020-09-16 06:36] LABS: Percent Iron Saturation 4 % (15-50); Total Iron Binding Capacity 420 ug/dL (265-497); Transferrin 352 mg/dL (206-381)
[2020-09-16 06:57] LABS: Anisocytosis 3+
[2020-09-16 07:02] LABS: Vitamin B12 232 pg/mL (239-931)
[2020-09-16] MEDS: FERROUS SULFATE 325 MG TABLET PO (08:10)
[2020-09-16] MEDS: PANTOPRAZOLE 40 MG VIAL IV (08:12)
[2020-09-16] MEDS: SODIUM CHLORIDE 0.9% FLUSH 10 ML IV (08:12)
[2020-09-16] MEDS: GABAPENTIN 100 MG CAPSULE PO (08:12)
[2020-09-16] MEDS: CYANOCOBALAMIN (VITAMIN B-12) 500 MCG TABLET 1000 MCG PO (08:12)
[2020-09-16] MEDS: LACTATED RINGERS 1,000 ML 42 ML IV (08:42)
--- NOTE | 2020-09-16 08:54 | SUR.HOLD ---
Patient to pre-op holding area from inpatient room 220. VSS. GCS 15. Denies any pain. Warm blankets and non-skid slippers provided for safety. Awaiting Dr Hurley's arrival.
--- NOTE | 2020-09-16 09:06 | PM.PREOP ---
Pre-operative Note Interval Note History & Physical reviewed/Exam performed by Physician: Yes Changes to H&P: No
--- NOTE | 2020-09-16 09:38 | PM.OP.ENDO ---
Operative Date/Time/Diagnoses Date of procedure: 09/16/20 Time of procedure: 09:38 Pre-op diagnosis: anemia Post-op diagnosis: same Procedure & Clinicians Study performed: aborted colonoscopy Same procedure as scheduled: Yes Indications: anemia Procedure Notes Procedure in detail: The history and physical was performed/updated and the patient is ASA class is 3. The procedure was discussed in detail with the patient. Potential risks complications including infection, bleeding, missed diagnosis, perforation, need for surgery, and were explained. Their questions were answered and informed consent was obtained. Patient was brought to the procedure room and placed standard monitoring equipment. The patient's vital signs were monitored continuously throughout the entire procedure. Prior to starting time-out was performed. The patient was placed in the left lateral recumbent position. Procedural sedation was administered by Anesthesia. Examination began with a thorough inspection of the perianal area there was no evidence of fissures, fistulae, external hemorrhoids or cutaneous malignancy. The colonoscopy scope was then placed into the anal canal and was advanced forward. The sigmoid colon was notable for extensive diverticulosis and tortuosity. Despite the scope stiffener, repositioning, irrigation I was unable to advance safely beyond 30 cm from the verge. The procedure was aborted. There was no evidence of active hemorrhage within the sigmoid colon. Specimen(s): none sent Complications: none Impression: Diverticulosis Post-procedure Plan for aftercare: Return to [facility] for monitoring
--- NOTE | 2020-09-16 10:17 | PC.NURSE ---
Addendum entered by Dinora Mccurdy R.N. 09/16/20 13:03: Patient and friend, Charisma given discharge information regarding f/u appointment, new prescriptions, activity and s/s of worsening condition, both verbalized understanding. Patient's IV removed, patient tolerated. Belongings given to Charisma, including phone, social media project manager and glasses. Patient discharged via wheelchair. Addendum entered by Dinora Mccurdy R.N. 09/16/20 12:13: Patient up to restroom for shower before D/C. Tele removed. IV in LAC removed. L Wrist IV remains intact, covered for shower. Patient tolerated. Original Note: Patient A/O x 4, back from PACU at 1000, VS WNL. SCD's on, tele back on. 0800 assessment-Fine crackles noted middle and lower left lobe, 96% RA, patient denies SOB. Denies chest pain. LUE IV x 2 patent, intact, saline locked. Patient tolerated PEG, inc of stool, up to BSC to void, 1 p assist. Patient denies pain. Call light in reach.
--- NOTE | 2020-09-16 11:05 | PT-IP ANOTE ---
checked to see pt but pt not in her room. pt went out for a colonoscopy procedure per nurse. checked back with nurse again and pt is back from her colonscopy but stated that pt is still very drowsy due to her anaesthesia and is not ready for PT at this time.
--- NOTE | 2020-09-16 12:07 | CM.DPC ---
DCP Discharge Home with HH Per Surgeon, EGD was normal and colonoscopy could not be fully completed as they could not scope far enough but the scope they were able to obtain was normal and recommending outpt follow up. No current clear signs of active bleed although her levels still trending down some. Per hospitalist, pt medically stable to d/c home today with HH and outpt follow up. PT ordered but eval unable to be completed as pt still feeling some affects of the anesthesia from colonoscopy. ROSHAN met bedside with pt, good friend Charisma, and son Tima via speaker phone from [place] and discussed d/c home and their interest in HH. SW discussed thoroughly HH services and frequency and Medicare coverage and the difference between HH and CG agency. Pt, son, and friend all agreeable to HH RN/PT/UNEMPLOYMENT SPECIALIST and no preference and therefore referral sent to [facility] based on Vendor Calendar. SW also provided the Senior Resource Guidebook with PP CG agencies and discussed the process and also provided the application for [facility] T[facility] Services to Older Adults. Pt confirms she has a hx of using [facility] and felt they were helpful and discussed that it would be helpful to have someone help with taking out the garbage, driving to errands, help with home cooking, etc. Friend Charisma willing and able to assist with getting PP CG set up for patient and also looking into Meals on Wheels. Pt confirms she is currently set up with [employer] for appointments and the grocery store. SW faxed referral and signed MD Fabian orders, and d/c summary to [facility] to review. Plan: Patient to d/c home today via friend KURT and new [facility] referral and friend and son to follow up on PP CG support and Meals on Wheels through [facility]. MANDO Velázquez
--- NOTE | 2020-09-16 17:08 | P.DS_ITS ---
History of Present Illness History of Present Illness Chief complaint: states, dont have any red blood cells Narrative: Ms. Sherman is a 79W with PMH of peripheral vascular disease s/p fem- fem bypass who comes in with anemia. She notes that for the last two weeks she has been feeling weaker. She is dizzy when she gets up. She is short of breath with exertion. She has noticed the weakness for slightly longer than that, but can't quantify for how long. She has had anemia before and has seen Dr. Cardozo who performed EGD and colonoscopy in 2019. She had gastric ulcers found at that time and was started on PPI and had follow up scope months later that showed resolution of her ulcers. She has since stopped her PPI. She denies alcohol use, or use of nsaids. She is on plavix. She has not noticed any bleeding, no hematemesis, hematochezia or melena. She presented to her PCP for her above symptoms who checked labs and noted her anemia and directed her to the ED. In the ED, workup was done vitals were noted for normal blood pressure, mild tachycardia in the 90s-100s. Labs notable for WBC of 2.9, hgb of 4.5, MCV of 66.6, platelets of 184. INR 1.2. Creatinine 0.62. Iron 12, with iron sat 3%. LFTs ok. LDH ok. She was ordered for transfusion of PRBC and admitted for further treatment. Discharge Providers Provider Date of admission: 09/14/20 15:40 Discharge Date: 09/16/20 Primary care physician: Rojelio Covarrubias MD Consults: 09/14/20 16:32 Consult to Physical Therapy Evaluate & Treat Comment: Physician Instructions: Evaluate and Treat 09/15/20 05:02 Consult to Respiratory Therapy Evaluate & Treat Comment: SOB Physician Instructions: Evaluate and treat 09/16/20 12:03 Consult to Home Health Routine Comment: Acute Anemia, weakness, transfusion Reason For Exam: Set up HH RN/PT/PRESALES ENGINEER for d/c home today Discharge provider: José Manuel Conn MD Summary Hospital Course Discharge Diagnosis: 1. Acute anemia 2. Pancytopenia 3. B12 deficiency, mild 4. Iron deficiency 5. Aortic stenosis 6. Peripheral vascular disease Hospital Course: Ms. Sherman was admitted with an initial hemoglobin of 4.7. She was found to have a low MCV. She also had mild lymphocytopenia and th rombocytopenia. She did have guaiac positive brown stools. She underwent EGD and colonoscopy that showed no evidence of bleeding. She had no evidence of overt bleeding prior to presentation. She felt improved after transfusion with hemoglobin near 10 on discharge. She was found to have low iron levels and low b12 levels which could explain her pancytopenia. Because of this she was prescribed iron and b12. She was referred to follow up with hematology for further evaluation. She had mild shortness of breath after transfusion and ECHO showed mild aortic stenosis, and she did require low dose lasix to remove fluid after which she felt improved. Code status: DNR Status at Discharge Cognitive/behavioral status at discharge: oriented Functional status at discharge: independent ambulation Overall status at discharge: patient is progressing back to baseline Time Spent with Patient Time spent: Less than 30 minutes Exam Vital Signs (past 8 hours): - 09/16/20 09:48 09/16/20 09:53 09/16/20 10:00 Temperature 97.6 F Pulse Rate 72 74 68 Respiratory Rate 17 17 18 Blood Pressure 103/36 L 96/35 L 118/82 Pulse Oximetry 92 95 94 09/16/20 10:42 09/16/20 11:12 09/16/20 11:42 Temperature 97.6 F 97.6 F 97.6 F Pulse Rate 67 67 77 Respiratory Rate 19 19 20 Blood Pressure 114/56 L 129/52 L 117/51 L Pulse Oximetry 93 93 94 Oxygen Delivery Method Room Air Oxygen Flow Rate 0 Narrative Exam Narrative: GEN: no acute distress HEENT: PERRL, moist mucous membranes CV: tachycardic, regular, 2/6 systolic ejection murmur PULM: clear bilaterally, no wheezes, rhonchi or rales ABD: soft, nontender, nondistended, no organomegaly, normal bowel sounds EXT: warm and well perfused with no edema NEURO: AAOx3, moving all extremities SKIN: no rashes PSYCH: pleasant mood, cooperative Objective Labs Result Diagrams: 09/16/20 05:25 09/16/20 05:25 Labs: Laboratory Results - last 24 hr 09/16/20 09/16/20 09/16/20 05:25 05:25 05:25 WBC 3.8 L RBC 3.96 L Hgb 9.8 L Hct 29.5 L MCV 74.6 L MCH 24.7 L MCHC 33.1 RDW 24.0 H Plt Count 154 Neut % (Auto) 73.4 Lymph % (Auto) 17.7 L [place] % (Auto) 8.3 Eos % (Auto) 0.3 L Baso % (Auto) 0.3 Neut # (Auto) 2800 Lymph # (Auto) 700 L [place] # (Auto) 300 Eos # (Auto) 0 Baso # (Auto) 0 RBC Morphology See below Anisocytosis 3+ H PT 13.6 H INR 1.2 Sodium Potassium Chloride Carbon Dioxide BUN Creatinine Estimated GFR BUN/Creatinine Ratio Glucose Uric Acid 5.1 Calcium Iron TIBC % Saturation Transferrin Total Bilirubin AST ALT Alkaline Phosphatase Total Protein Albumin Globulin Albumin/Globulin Ratio Vitamin B12 09/16/20 09/16/20 05:25 05:25 WBC RBC Hgb Hct MCV MCH MCHC RDW Plt Count Neut % (Auto) Lymph % (Auto) [place] % (Auto) Eos % (Auto) Baso % (Auto) Neut # (Auto) Lymph # (Auto) [place] # (Auto) Eos # (Auto) Baso # (Auto) RBC Morphology Anisocytosis PT INR Sodium 139 Potassium 3.6 Chloride 101 Carbon Dioxide 30 BUN 11 Creatinine 0.62 Estimated GFR > 60.0 BUN/Creatinine Ratio 17.7 Glucose 92 Uric Acid Calcium 8.8 Iron 16 L TIBC 420 % Saturation 4 L Transferrin 352 Total Bilirubin 0.7 AST 27 ALT 10 Alkaline Phosphatase 63 Total Protein 6.6 Albumin 3.8 Globulin 2.8 Albumin/Globulin Ratio 1.4 Vitamin B12 232 L [facility] Surgical History S/P femoral-femoral bypass surgery Status post bilateral hip replacements Social History household members: none Smoking Status: Former smoker Tobacco: How many years used: 30 alcohol intake: current Discharge Plan Discharge Plan Patient Disposition: Home Provider Discharge Comment: Ms. Sherman was admitted with very low hemoglobin of 4.7. She was given blood and felt better. Her hemoglobin was near 10 at discharge. She had endoscopy and colonoscopy that did not show bleeding. She had low iron and b12 levels in her blood and was given prescription for this. She was recommended to follow up with vending machine assembler for her low blood counts and was referred to Dr. Bañuelos. Of note she had shortness of breath, due to her anemia. But she did have an ECHO done that showed mild aortic stenosis that can be further monitored. Discharge orders & Medications Prescriptions: New cyanocobalamin (vitamin B-12) 500 mcg Tablet 1,000 mcg PO DAILY Qty: 30 RF: 0 ferric citrate 210 mg iron tablet 210 mg PO TID Qty: 90 RF: 0 Continued clopidogrel 75 mg tablet 75 mg PO DAILY RF: 0 gabapentin 100 mg Capsule 100 mg PO DAILY RF: 0 sertraline 50 mg Tablet 50 mg PO BEDTIME RF: 0 Follow up/Referrals: Rojelio Covarrubias MD [Primary Care Provider] - Elly Bañuelos MD [Physician] - (pancytopenia) Diet/Activity/Treatments Diet: Diet as Tolerated Discharge Data Primary Care Provider: Rojelio Covarrubias
== END 2020-09-16 13:10 | disposition home or self-care (01) | DRG 812 ==
LOC: ED 15:19 → AC 15:42
PROVIDERS: Nurse Practitioner Family; Specialist; Surgery; Admitting Provider Internal Medicine; Emergency Provider Emergency Medicine; PCP Internal Medicine; Referring Provider Emergency Medicine; Visit Provider Internal Medicine
PROC: 0DJ08ZZ Inspection of Upper Intestinal Tract, Via Natural or Artificial Opening Endoscopic (ICD-10-PCS; CPT 43235; principal; 2020-09-15 10:45)
PROC: 0DJD8ZZ Inspection of Lower Intestinal Tract, Via Natural or Artificial Opening Endoscopic (ICD-10-PCS; CPT 45378; principal; 2020-09-16 09:00)
DX: D64.9 Anemia, unspecified (principal); R19.5 Other fecal abnormalities; D72.819 Decreased white blood cell count, unspecified; E53.8 Deficiency of other specified B group vitamins; D61.818 Other pancytopenia; R01.1 Cardiac murmur, unspecified; I73.9 Peripheral vascular disease, unspecified; I35.0 Nonrheumatic aortic (valve) stenosis; Z20.822 Contact with and (suspected) exposure to COVID-19; D69.6 Thrombocytopenia, unspecified
CPT/HCPCS: 36415; 36430; 71045; 80053; 82607; 82746; 82805; 83010; 83540; 83550; 83615; 84550; 85025; 85045; 85379; 85610; 85730; 86850; 86900; 86901; 87635; 93005; 93010; 99284; 99285; C9803; P9016; C8929; C9113; J0330; J1100; J1200; J1940; J2405; J2704; J7613; Q9957

== ENCOUNTER → 2021-12-03 13:01 | Outpatient (CLI) | payer MEDICARE, OTHER, SELFPAY ==
[2020-09-14 16:24] VITALS: BMI 20.7
--- NOTE | 2021-12-03 | DI.MRI.S_ITS ---
PROCEDURE: MR CERVICAL SPINE WO CON INDICATIONS: occipital neuralgia TECHNIQUE: Noncontrast sagittal T1 spin echo and T2 fast spin echo, sagittal STIR, foraminal oblique sagittal T2 fast spin echo, and axial gradient echo or T2 fast spin echo through the cervical spine. COMPARISON: None. FINDINGS: Image quality: Excellent. Alignment and Curvature: Prominent kyphosis is present. There is 2 mm anterolisthesis of C4 on C5, 3 mm anterolisthesis of C5 on C6. Bone Marrow: Marrow demonstrates normal overall signal. Spinal Cord: Visualized spinal cord has normal size and signal. No cerebellar tonsillar herniation. Paraspinous Soft Tissues: No paravertebral masses. Prevertebral soft tissues are normal in thickness. Discs: Ustu-ty-grxdzgcu disc desiccation is present throughout the cervical spine. C2-C3: No disc bulge, spinal stenosis or foraminal narrowing. C3-C4: Minimal disc bulge without spinal stenosis. Severe bilateral foraminal narrowing with uncovertebral hypertrophy. C4-C5: Mild disc bulge without spinal stenosis. Moderate bilateral foraminal narrowing with uncovertebral hypertrophy. C5-C6: Mild disc bulge with slight effacement of the anterior thecal sac. Moderate bilateral foraminal narrowing with uncovertebral hypertrophy. C6-C7: Mild disc bulge with prominent posterior central protrusion. There is indentation of the anterior thecal sac as well as cord with overall moderate spinal stenosis. Moderate right and qpqp-ic-bfxuhvqi left foraminal narrowing with uncovertebral hypertrophy. C7-T1: Mild disc bulge with prominent posterior central protrusion. There is indentation of the anterior thecal sac as well as cord with ekzy-dj-bujbzvbl spinal stenosis. Eumn-se-txtuioiu bilateral foraminal narrowing with uncovertebral hypertrophy. IMPRESSION: Exaggerated kyphosis. Significant multilevel foraminal narrowing secondary to uncovertebral arthropathy most significant at C3-4, C4-5, C5-6. Dictated by: Merlyn Blanchard M.D. on 12/03/2021 at 15:36 Approved by: Merlyn Blanchard M.D. on 12/03/2021 at 15:43
--- NOTE | 2021-12-03 | DI.MRI.S_ITS ---
PROCEDURE: MR HEAD/BRAIN WO CON INDICATIONS: occipital neuralgia TECHNIQUE: Noncontrast axial T1 spin echo, axial T2 fast spin echo, sagittal and axial FLAIR, coronal T2 fast spin echo, axial gradient echo, axial diffusion and ADC through the brain. COMPARISON: [facility], MR, BRAIN WITHOUT CONTRAST, 12/08/2014, 12:23. FINDINGS: Image quality: Excellent. CSF Spaces: Basal cisterns are patent. No extra-axial fluid collections. Ventricles are normal in size and shape. Brain: Moderate atrophy and multifocal white matter chronic ischemic changes similar prior exam. No intracranial masses or hemorrhage. Padilla/white matter interface is normal. Brainstem appears normal. Diffusion-weighted images demonstrate no infarct. Normal intravascular flow voids are present. Skull and face: Calvarium has normal marrow signal. Orbits appear normal. Bilateral intraocular lens replacements noted. Sinuses: Minimal fluid left mastoid may be inflammatory or postinflammatory. IMPRESSION: 1. Atrophy and chronic ischemic change without acute hemorrhage or mass effect. 2. Left mastoid effusion may be inflammatory or postinflammatory Approved by: Marcellus Lund M.D. on 12/03/2021 at 15:10
== END ==
PROVIDERS: PCP Internal Medicine; Referring Provider Internal Medicine; Visit Provider Internal Medicine
DX: M54.81 Occipital neuralgia (principal); M40.202 Unspecified kyphosis, cervical region; M48.02 Spinal stenosis, cervical region; M47.812 Spondylosis without myelopathy or radiculopathy, cervical region; G93.6 Cerebral edema
CPT/HCPCS: 70551; 72141

== ENCOUNTER 2022-09-24 11:42 | Day surgery (SDC) | payer MEDICARE, OTHER, SELFPAY ==
[2020-09-14 16:24] VITALS: BMI 20.7
[2022-09-24] VITALS (7 sets, daily range): BP systolic 69–138; BP diastolic 42–62; PULSE 84–94; RESP 12–18; TEMP 36.3–36.4; O2SAT 94–99; BMI 23.6
--- NOTE | 2022-09-24 | PATH_ITS ---
[facility] Accession Number: [id number] No. of containers..02 Tissue . 01 Material submitted: . PART A: duodenum - DUODENAL BIOPSY PART B: gastrointestinal site - GASTRIC BIOPSY . 01 Diagnosis: A. Duodenum, Biopsy: Duodenal mucosa with no diagnostic abnormality. Negative for active inflammation, features of sprue, dysplasia, or malignancy. . B. Stomach, Biopsy: Body type mucosa with mild chronic gastritis. No evidence of Helicobacter organisms on H/E stain. Negative for intestinal metaplasia. Negative for dysplasia or malignancy. [facility] 09/27/2022 1109 Local . 01 Comment: B. An immunohistochemical stain to evaluate for Helicobacter organisms will be performed and the results reported as an addendum. . 01 Electronically signed: . Danae Calderon MD, Pathologist NPI- [id number] . 01 Gross description: . Part A: DUODENAL BIOPSY: Received in formalin are 2 fragment(s) of arreguin, soft tissue measuring 0.1 x 0.1 x 0.1 cm to 0.3 x 0.3 x 0.2 cm submitted entirely in 1 cassette(s) Part B: GASTRIC BIOPSY: Received in formalin is 1 fragment(s) of arreguin, soft tissue measuring 0.3 x 0.3 x 0.2 cm submitted entirely in 1 cassette(s) /[facility] 09/25/20222030 Local . 01 Pathologist provided ICD-10: Z87.11 . 01 CPT . 267895, 910372, F35099 Specimen Comment: A courtesy copy of this report has been sent to [phone] Performed at: 01 [facility] [address] [place] [address] [address], [place], [place] [id number] MD Luiz Barron MD Phone: [phone]
[2022-09-24] MEDS: LACTATED RINGERS 1,000 ML 200 ML IV (12:28)
--- NOTE | 2022-09-24 13:29 | PM.HP.1 ---
History of Present Illness History of Present Illness Date Patient Seen: 09/24/22 Time Patient Seen: 13:29 Chief complaint: EGD Narrative: 81-year-old woman with anemia on Plavix history of peptic ulcer disease who is here for esophagoduodenoscopy. No abdominal pain nausea vomiting unintentional weight loss. PENDING SALE TO [facility] Surgical History S/P femoral-femoral bypass surgery Status post bilateral hip replacements Social History household members: none Smoking Status: Former smoker Tobacco: How many years used: 30 alcohol intake: current Meds Home Medications and Allergies Home Medications Medication Instructions Recorded Confirmed Type clopidogrel 75 mg tablet 75 mg PO DAILY 05/27/18 08/08/22 History gabapentin 100 mg capsule 100 mg PO DAILY 09/14/20 08/08/22 History sertraline 50 mg tablet 50 mg PO BEDTIME 09/14/20 08/08/22 History cyanocobalamin (vitamin B-12) 500 1,000 mcg PO DAILY #30 tabs 09/16/20 08/08/22 Rx mcg tablet ferric citrate 210 mg iron tablet 210 mg PO TID #90 tabs 09/16/20 08/08/22 Rx Allergies Allergy/AdvReac Type Severity Reaction Status Date / Time No Known Drug Allergies Allergy Verified 08/08/22 10:50 Exam Vital Signs (past 8 hours): - 09/24/22 12:14 Temperature 97.5 F L Pulse Rate 89 Respiratory Rate 16 Blood Pressure 83/62 L Pulse Oximetry 99 Oxygen Delivery Method Room Air Oxygen Delivery Method Room Air Narrative Exam Narrative: General elderly woman alert oriented no acute distress Assessment & Plan Assessment and plan (1) Anemia: Qualifiers: Anemia type: iron deficiency Iron deficiency anemia type: unspecified iron deficiency Qualified Code(s): D50.9 - Iron deficiency anemia, unspecified Status: Acute Assessment & Plan narrative: 81-year-old woman history of peptic ulcer disease with anemia who is here for diagnostic esophagoduodenoscopy. Overview of the procedure was discussed with the patient. Procedural risks including hemorrhage, missed diagnosis, intestinal injury were discussed. Questions have been answered she is in agreement with this plan. She provides her written and verbal consent to proceed.
--- NOTE | 2022-09-24 13:32 | PM.OP.EGD ---
Operative Date/Time/Diagnoses Date of procedure: 09/24/22 Time of procedure: 13:32 Pre-op diagnosis: Microcytic anemia, history of peptic ulcer disease, Procedure & Clinicians Study performed: Esophagoduodenoscopy Same procedure as scheduled: Yes Indications: Microcytic anemia, history of peptic ulcer disease Surgeon: Fidencio Hurley Procedure Notes Procedure in detail: The history and physical was performed/updated and the patient is ASA class is 3. The procedure was discussed in detail with the patient. Potential risks complications including infection, bleeding, missed diagnosis, perforation, need for surgery, and were explained. Their questions were answered and informed consent was obtained. Patient placed in left lateral decubitus position. Time out was performed. Procedural sedation was administered by Anesthesia. A bite block was placed. the scope was inserted into the mouth and advanced through the esophagus and into the stomach. Stomach was notable for mild gastritis. No distinct ulcer. Duodenum was intubated and within the duodenum there were several spots of duodenitis no active bleeding. Biopsy of the stomach and duodenum were performed. The scope was withdrawn into the esophagus the Z line was seen at 40 cm from the incisions. There was no Renee's esophagitis, esophageal masses or strictures. Stomach was desufflated and scope removed. The patient tolerated the procedure well and will be discharged when they meet criteria. Specimen(s): other (Gastric, duodenum) Complications: none Impression: Duodenitis Post-procedure Plan for aftercare: Start omeprazole 20 mg daily Will notify with pathology Disposition: same day surgery
== END 2022-09-24 14:37 | disposition home or self-care (01) ==
PROVIDERS: PCP Internal Medicine; Referring Provider Surgery; Visit Provider Surgery
PROC: 0DJ08ZZ Inspection of Upper Intestinal Tract, Via Natural or Artificial Opening Endoscopic (ICD-10-PCS; CPT 43235; principal; 2022-09-24 13:00)
DX: D50.9 Iron deficiency anemia, unspecified (principal); K29.80 Duodenitis without bleeding; K29.50 Unspecified chronic gastritis without bleeding; Z87.11 Personal history of peptic ulcer disease; Z87.891 Personal history of nicotine dependence
CPT/HCPCS: 43239; J2704

== ENCOUNTER → 2024-12-30 09:34 | Outpatient (CLI) | payer MEDICARE, OTHER, SELFPAY ==
[2020-09-14 16:24] VITALS: BMI 20.7
--- NOTE | 2024-12-30 15:10 | ST.SWALLOW ---
Visit Care Team Role Provider Type Rojelio Covarrubias MD Attending Provider Non-Staff Primary Care Provider Referring Provider Specialty: Internal Medicine Address: [address] [place] [address], [place], [address] Email: Modified Barium Swallow Study SOFTWARE DEVELOPER MANAGER Modified Barium Swallow Study Start: 12/30/24 14:17 Freq: Status: Active Protocol: Document 12/30/24 14:18 LNK (Rec: 12/30/24 15:09 LNK Desktop) Modified Barium Swallow Study Total Time Visit Start Time 10:00 Visit Stop Time 11:00 Total Visit Minutes [address] Covarrubias Reason for Referral dysphagia Setting Setting Outpatient Care Patient Information Identification Type Name,Date of Patient History Pt was seen for a Modified Barium Swallow Study with c/ o difficulty swallowing foods, liquids and medication, stating they get stuck in her throat (points to sternal notch area). Pt reported that there are foods she cannot eat such as breads, hotdogs, hamburgers, etc. Pt 's PMH includes gastric ulcers and gastritis. Pt reported she currently eats soft foods during meals. She noted she recently went to a November 26 gathering, looking forward to a hot dog. She stated that it didn't go well. She denied any choking or coughing with meals. Pt lives alone, but does not cook. Subjective Pt was seated in the fluoroscopy chair with directions Observations and procedures described for her. She indicated she understood and agreed to proceed. Patient Positioning Position View Lat-A/P Imaging Lateral View Textures Administered Trials Presented Thin Liquid via Spoon (IDDSI 0),Thin Liquid via Cup ( IDDSI 0),Extremely Thick Liquid via Spoon (IDDSI 4), Regular (IDDSI 7) Barium Tablet Yes The IDDSI Framework Protocol: IDDSI.1 Oral Impairment Source: The Modified Barium Swallow Impairment Profile (MBSImP??) Lip Closure No labial escape Tongue Control Posterior escape of greater than half of bolus During Bolus Hold Bolus Preparation/ Slow prolonged chewing/mashing with complete re- Mastication collection Bolus Transport/ Slowed tongue motion Lingual Motion Oral Residue Trace residue lining oral structures Location Tongue Initiation of Bolus head at posterior laryngeal surface of epiglottis Pharyngeal Swallow Additional Oral Oral phase of swallow observed to be WNL Impairment *OME and DKS were observed to be WNL. Observations *Dentition with upper and lower dentures well-fitted *Mastication observed with rotary chew pattern. *Good bolus formation, control and AP transition. *Velopharyngeal closure was WNL. Pharyngeal Impairment Source: The Modified Barium Swallow Impairment Profile (MBSImP??) Soft Palate No bolus between soft palate & pharyngeal wall Elevation Laryngeal Elevation Part.sup.move.thyroid cart/part.approx.arytenoids to epiglot.petiole Anterior Hyoid Partial anterior movement Excursion Epiglottic Movement Complete inversion Laryngeal Vestibular Complete; no air/contrast in laryngeal vestibule Closure Pharyngeal Stripping Present - diminished Wave Pharyngoesophageal Partial distention/partial duration; partial Segment Opening obstruction of flow Tongue Base Wide column of contrast/air betwn tongue base & post. Retraction pharyngeal wall Pharyngeal Residue Complete pharyngeal clearance Location Valleculae Additional *Unusual pharyngeal/tracheal/esophageal soft tissue Pharyngeal observed, appearing to be bulbous, narrowing the UES Impairment and upper esophagus Observations *Reduced base of tongue retraction strength and hyolaryngeal elevation - WFL for pt age *Epiglottal inversion and good seal of laryngeal vestibule - no laryngeal penetration or tracheal aspiration *Minimal pharyngeal pooling observed A/P View Textures Administered Trials Presented Thin Liquid via Spoon (IDDSI 0) The IDDSI Framework Protocol: IDDSI.1 A/P View Observations Pharyngeal Complete Contraction Esophageal Clearance Esophageal retention Upright Position Vocal Fold Function Good Esophageal Function Poor Motility,Reverse Peristalsis Additional A-P Thin barium and calibrated barium tablet were presented Observations for AP trials *Slow clearing *Enlarged esophagus was noted *Tortuous esophageal spasms observed *Barium tablet stopped at LES; did not pass to stomach during flouroscopy. it was explained to the pt that the tablet will eventually dssolve and enter her stomach Clinical Impressions Findings Oral and pharyngeal phases of pt's swallow were WFL, given her age. Esophageal stasis, dysmotility, and slow clearance of contents noted during esophageal phase. Observations of unusual tissue within the pharynx and esophagus were noted. Further assessment is recommended. Pt was encouraged to discuss with Dr Covarrubias, additional assessments via ENT, or GI. Additionally, recommend that pt continue to self-modify diet as needed, utilize slow rate, remain upright during PO intake and for at least 30-minutes after, and alternate liquids and solids to assist in mitigating esophageal symptoms. Information on globus sensation was provided for the pt, who expressed appreciation. Patient Appropriate No for Therapy Recommendations Diet Comments no diet change recommended
== END ==
PROVIDERS: PCP Internal Medicine; Referring Provider Internal Medicine; Visit Provider Internal Medicine
DX: R13.10 Dysphagia, unspecified (principal); K22.89 Other specified disease of esophagus
CPT/HCPCS: 74230; 92611